=== PATIENT | male | born 1950 | race Caucasian/White ===

== ENCOUNTER 2018-08-21 02:14 | Outpatient (CLI) | payer MEDICARE, BC, SELFPAY ==
[2018-08-21 09:08] LABS: Cholesterol 201 mg/dL (50-200); HDL Cholesterol 41 mg/dL (40-60); LDL CHOLESTEROL 146 mg/dL (<100); Triglyceride 96 mg/dL (30-150)
== END 2018-08-21 02:34 ==
PROVIDERS: PCP Internal Medicine; Visit Provider Internal Medicine
DX: E78.5 Hyperlipidemia, unspecified (principal); I10 Essential (primary) hypertension
CPT/HCPCS: 36415; 80061; 83721

== ENCOUNTER 2019-03-03 09:13 | Outpatient (CLI) | payer MEDICARE, BC, SELFPAY ==
[2019-03-04 09:26] LABS: PSA, Screening 4.1 ng/ml (0-4.5)
== END 2019-03-03 09:33 ==
PROVIDERS: PCP Internal Medicine; Visit Provider Internal Medicine
DX: R35.1 Nocturia (principal)
CPT/HCPCS: 36415; 84153

== ENCOUNTER 2019-10-02 11:52 | Outpatient (CLI) | payer MEDICARE, BC, SELFPAY ==
--- NOTE | 2019-10-02 11:45 | DI.RAD_ITS ---
EXAM: XR CHEST 2V PA LATERAL INDICATION: cough, upper respiratory infection, J06.9. COMPARISON: CHEST 2 VIEWS PA,LAT from 02/10/2018 TECHNIQUE: 2D digital imaging was performed. FINDINGS: Heart size is normal. The aorta is normal in diameter. There are increased densities seen near the right inferior hilum which could represent pneumonia versus overlying structures. The left lung appe ars clear. No effusions are seen. IMPRESSION: Question of right lower lobe pneumonia versus atelectasis are overlying densities.
[2019-10-02 12:57] LABS: Abs Immature Grans 0.03 k/cumm (0.0-0.09); Absolute Eosinophil Count 0.03 k/cumm (0.0-0.7); Basophils % 0.2; Eosinophils % 0.2; HCT 44.9 % (40.0-50.0); HGB 14.9 g/dL (13.5-17.5); Immature Grans % 0.2; Lymphocytes % 9.2; Mean Corp. HGB Concentration 33.2 g/dL (32.0-36.0); Mean Corpuscular Hemoglobin 29.3 pg (27.0-33.0); Mean Corpuscular Volume 88.4 fL (80-95); Mean Platelet Volume 10.4 fL (8.0-11.0); Neutrophils % 81.2; Platelet Count 332 x1000/uL (130-400); RBC 5.08 m/cumm (4.50-6.00); RBC Distribution Width 13.1 % (11.8-14.1); White Blood Cell Count 13.04 k/cumm (4.4-10.8)
[2019-10-02 13:00] LABS: ALT 52 U/L (16-63); AST 24 U/L (15-37); Albumin 3.3 g/dL (3.4-5.0); Alkaline Phosphatase 94 U/L (46-116); Anion Gap 8.3 mmol/L (3-11); BUN 14 mg/dL (7-18); Bilirubin, Total 0.9 mg/dL (0.2-1.0); CO2 29.7 mmol/L (21.0-32.0); CREATININE 1.09 mg/dL (0.70-1.30); Calcium 8.8 mg/dL (8.5-10.1); Chloride 100 mmol/L (98-107); Glucose 112 mg/dL (70-100); Potassium 4.1 mmol/L (3.5-5.1); Sodium 138 mmol/L (136-145); Total Protein 7.3 g/dL (6.4-8.2)
[2019-10-02 13:02] LABS: Absolute Basophil Count 0.03 k/cumm (0.0-0.2); Absolute Monocyte Count 1.17 k/cumm (0.11-0.7); Absolute Neutrophil Count 10.59 k/cumm (1.2-6.7)
== END 2019-10-02 12:12 ==
PROVIDERS: PCP Internal Medicine; Visit Provider Internal Medicine
DX: R05 Cough (principal); J06.9 Acute upper respiratory infection, unspecified; R50.9 Fever, unspecified; J98.4 Other disorders of lung
CPT/HCPCS: 36415; 80053; 71046; 85025

== ENCOUNTER 2020-06-04 12:57 | Outpatient (REF) | payer MEDICARE, BC, SELFPAY ==
[2020-06-04 13:02] LABS: CREATININE 1.06 mg/dL (0.70-1.30); Calculated LDL 160 mg/dL (<100); Cholesterol 228 mg/dL (<200); HDL Cholesterol 40 mg/dL (40-60); Potassium 4.3 mmol/L (3.5-5.1); Triglyceride 142 mg/dL (<150)
[2020-06-04 13:58] LABS: Hemoglobin A1C 5.6 % (3.8-5.6)
== END 2020-06-04 13:17 ==
LOC: LBN 12:57
PROVIDERS: PCP Nurse Practitioner; Visit Provider Nurse Practitioner
DX: I10 Essential (primary) hypertension (principal); R73.03 Prediabetes
CPT/HCPCS: 80061; 82565; 83036; 84132

== ENCOUNTER 2020-09-03 13:05 | Outpatient (REF) | payer MEDICARE, BC, SELFPAY ==
[2020-09-03 14:17] LABS: Calculated LDL 67 mg/dL (<100); Cholesterol 129 mg/dL (<200); HDL Cholesterol 42 mg/dL (40-60); Triglyceride 100 mg/dL (<150)
== END 2020-09-03 13:25 ==
LOC: LBN 13:05
PROVIDERS: PCP Nurse Practitioner; Visit Provider Nurse Practitioner
DX: E78.5 Hyperlipidemia, unspecified (principal)
CPT/HCPCS: 80061

== ENCOUNTER 2021-07-04 09:26 | Day surgery (SDC) | payer MEDICARE, BC, SELFPAY ==
--- NOTE | 2021-07-04 07:01 | W.ANESPRE ---
General Info Date of Service Date Performed: 07/04/21 Height: 6 ft 1 in Weight: 113.398 kg Body Mass Index (BMI): 33.0 Surgical Procedure: Operation Date: 07/04/21 12:40 Proposed Procedures Side Surgeon p Cataract Extraction with IOL Implant Right Thiago Gamboa MD Meds Allergies and Home Medications Allergies Allergy/AdvReac Type Severity Reaction Status Date / Time No Known Allergies Allergy Verified 07/04/21 09:55 Home Medication Medication Instructions Recorded aspirin [Aspirin Low-Strength] 81 mg PO DAILY tab-cap 10/09/13 hydrochlorothiazide 12.5 mg tablet 12.5 mg PO DAILY #90 tab-cap 02/03/21 lisinopril 40 mg tablet 40 mg PO DAILY #90 tab-cap 02/03/21 atorvastatin 40 mg tablet 40 mg PO QPM #90 tab 06/10/21 Current Visit Medications: Current Medications Generic Name Dose Route Start Last Admin Trade Name Freq PRN Reason Stop Dose Admin Acetaminophen 1,000 mg 07/04/21 06:00 Acetaminophen 500 Mg Tab PO Q4H PRN PRN Miscellaneous Medication 0 ml 07/04/21 06:00 Prednisolone 1%, Moxifloxacin 0.5%, Nepafenac 0.1% 5ml Btl OD DIRECTED MARQUISE Miscellaneous Medication 0 ml 07/04/21 06:00 Tropicam./Phenyleph. (1/2.5%) 5 Ml Btl OD DIRECTED MARQUISE Tetracaine HCl 0 ml 07/04/21 06:00 Tetracaine 0.5% 4 Ml Btl OD DIRECTED MARQUISE PFSH Active Problems Active Problems: Problem Status Onset Code Cataract H26.9 Hyperlipidemia E78.5 Essential hypertension 10/08/13 I10 Medical History Medical History Atypical chest pain (02/10/18) negative stress test Essential hypertension Surgical History Surgical History Colonoscopy - MAC (05/31/18) Repair of inguinal hernia (~2007) left Tobacco Smoking/Tobacco Use Status: Former Tobacco Use Tobacco: How many years used: 35 Passive smoking exposure: No Quit Status: has quit before Second hand exposure: No Alcohol Alcohol Intake: current Alcohol intake frequency: a few times a month Alcohol type: hard liquor Substance Use Substance use: Never Substance use type: does not use Vital Signs and Lab Results Vital Signs Most Recent Vital Signs in EMR: Temp Pulse Resp BP Pulse Ox 36.4 C L 66 16 138/82 98 07/04/21 09:41 07/04/21 09:41 07/04/21 09:41 07/04/21 09:41 07/04/21 09:41 Lab Results Blood Type / Crossmatch: No Data to Display Complete Blood Count: No Data to Display Complete Metabolic Panel: No Data to Display Liver Function Panel: No Data to Display Coagulation Panel: No Data to Display Cardiac Panel: No Data to Display Arterial Blood Gas: No Data to Display Venous Blood Gas: No Data to Display Pancreas Panel: No Data to Display Thyroid Panel: No Data to Display Infectious Disease: No Data to Display Blood Cultures: No Data to Display Toxicology Panel: No Data to Display Imaging and Studies Imaging and Studies Stress Test Summary: 01/2018: stress ECG negative. target HR was achieved. Anesthesia Assessment and Plan Anesthesia History Personal History: No History of Anesthesia Complications Family History: No Family History of Anesthesia Complications Exercise Tolerance Exercise Tolerance: Metabolic Equivalents>4 Cardiac & Pulmonary Exam Cardiac Exam: Normal S1/S2 Heart Sounds Pulmonary Exam: Clear Bilateral Breath Sounds Airway Exam Known Difficult Airway: No Mallampati Class: 3 Mouth Opening: Normal (> 3cm) Thyromental Distance: Greater than 3 cm Neck Range of Motion: Limited ROM Neck Circumference: Thick Teeth Condition: Normal Dentition (multiple missing. ) ASA Classification ASA Score: ASA 2 Emergency Case?: No NPO Status NPO Status: NPO Clears >2 hours, Solids >8 hours Anesthesia Plan Resuscitation Status: Full Code Anesthesia Technique: MAC Anesthesia Airway Planned: Natural Airway Monitors Used: Standard Monitors Preoperative Comments:: 68 yo male for cataract removal. discussed risks, benefits, and alternatives to MKO, would like MKO. sig PMHx: HTN
[2021-07-04 09:41] VITALS: BP 138/82; PULSE 66; RESP 16; TEMP 36.4; O2SAT 98
[2021-07-04] MEDS: Tropicam./Phenyleph. (1/2.5%) 5 ML BTL OD ×3 (09:54→10:09)
[2021-07-04 09:59] VITALS: BMI 33.0
[2021-07-04] MEDS: Tetracaine 0.5% 4 ML BTL OD (10:58)
[2021-07-04] MEDS: Balanced Salt Soln.-PLUS 500 ML BAG (11:07)
[2021-07-04] MEDS: Povidone-Iodine Ophth 30 ML BTL (11:07)
[2021-07-04] MEDS: Lidocaine 2% Jelly 6 ML SYR (11:08)
[2021-07-04] MEDS: Lidocaine 1% Pres-Free 5 ML VIAL (11:08)
[2021-07-04] MEDS: Duovisc Viscoelastic System EACH 1 EACH (11:09)
[2021-07-04] MEDS: Trypan Blue 0.06% 0.5 ML SYR (11:14)
[2021-07-04 11:36] VITALS: BP 128/69; PULSE 60; RESP 16; TEMP 36.2; O2SAT 96
--- NOTE | 2021-07-04 11:38 | W.PM.DSUDISC ---
Discharge Plan Disposition Patient Disposition: HOME Condition: Good Discharge Details Reason For Visit: Cataract Attending Provider: Thiago Gamboa Primary Care Provider: Dorita Carter Home Meds and New Rx's Prescriptions: No Action atorvastatin 40 mg tablet 40 mg PO QPM Qty: 90 RF: 4 aspirin [Aspirin Low-Strength] 81 MG tablet,chewable 81 mg PO DAILY RF: 0 hydrochlorothiazide 12.5 mg tablet 12.5 mg PO DAILY Qty: 90 RF: 3 lisinopril 40 mg tablet 40 mg PO DAILY Qty: 90 RF: 4 Discharge Instructions Stand Alone Forms: Post-op Topical Cataract, Brendan Wen (DSU) Discharge Orders Discharge Orders: Discharge Order (Routine); Ordered 07/04/21 Ordered By: Thiago Gamboa DS: Diagnosis Discharge Diagnosis (1) Posterior subcapsular age-related cataract, right eye: Status: Resolved (2) Nuclear sclerotic cataract of right eye: Status: Resolved
--- NOTE | 2021-07-04 11:39 | W.PM.OP ---
Date of service: 07/04/21 Time of Service: 11:39 Operative Note Operative Note DATE OF PROCEDURE: 07/04/21 PRE-OP DIAGNOSIS: Dense nuclear/posterior subcapsular cataract, right eye Poor red reflex, right eye secondary to cataract POST-OP DIAGNOSIS: same PROCEDURE: Cataract extraction using phacoemulsification with intraocular lens implantation, right eye, using capsular staining with Vision Blue SURGEON: Thiago Gamboa ANESTHESIA TYPE: Local By Surgeon and MAC Refer to Anesthesia Record PATHOLOGY: none sent COMPLICATIONS: None Patient was transported to: same day Patient's condition: stable Implants: Orte[employer] Ortega / [employer] Tecnis [id number] Indications: Progressive visual loss due to cataract, right eye Procedure Description: CATARACT SURGERY OPERATIVE REPORT PREOPERATIVE DIAGNOSIS: 1. Dense nuclear/posterior subcapsular cataract, right eye 2. Poor red reflex secondary to #1 POSTOPERATIVE DIAGNOSIS: Same OPERATION: 1. Cataract extraction using phacoemulsification with posterior chamber intraocular lens implant, right eye. 2. Capsular staining with Vision Blue IOL: IOL Mental Health Counselor/Model: [employer] / KEM Tecnis [id number] IOL Power: + 21.5 diopters IOL Serial Number: [id number] Optic Diameter: 6.0mm Haptic/Overall Diameter: 13.0mm PHACO INFO: Andrews [employer] Vision System with OZil and Active Fluidics Cumulative Dispersed Energy (CDE): 27.25 seconds SURGEON: Thiago Gamboa MD, JN ANESTHESIA: Monitored Anesthesia Care (MAC), with local sub-tenon's anesthetic infiltration COMPLICATIONS: None SPECIMENS: None INDICATIONS FOR PROCEDURE: The patient is a 71-year-old gentleman with history of progressive decreased vision in his right eye. He is noted to have a dense nuclear and posterior subcapsular cataract in the right eye. The option of cataract surgery was offered to the patient and he felt he was symptomatic enough that he wished to proceed. PROCEDURE: The correct surgical eye was identified and marked as the right eye and the pupil was dilated in the preoperative area using mydriatics and cycloplegics. The dilated pupil size was 7.0 mm. Oral sedation was administered in the form of an Imprimis MKO Melt (midazolam 3mg/ketamine 25mg/ondansetron 2mg). The patient was brought to the operating room where cardiopulmonary monitoring was instituted and surgical time-out was performed, confirming the correct operative eye and IOL power. Topical anesthesia was administered and ophthalmic povidone-iodine 5% was instilled into the conjunctival fornices. Lidocaine gel was applied to the cornea and the edmund-ocular area was prepped with Betadine 10% solution and draped in the usual sterile fashion for intraocular surgery, including an aperture drape. A Tegaderm transparent film dressing was cut in half and used to cover the lashes and lid margins. Care was taken to sequester the lashes and lid margins under the Tegaderm dressing. A lid speculum was placed between the lids of the operative eye and the Jennifer-Beverley operating microscope was maneuvered into position. Gage scissors were then used to make a conjunctival buttonhole approximately 6mm posterior to the limbus in the inferonasal quadrant. Blunt dissection was carried out to expose bare sclera, and a blunt-tipped sub-tenon?s anesthesia cannula was introduced and passed posteriorly along the globe where non-preserved plain lidocaine was injected into posterior sub-Tenon?s space. A sideport knife was used to make a paracentesis port inferotemporally. Intraocular phenylephrine/lidocaine was injected into the anterior chamber. Air was injected into the anterior chamber, followed by Vision Blue, which was painted over the anterior capsule and then irrigated out with BSS. The anterior chamber was filled with viscoelastic. A 2.4mm keratome knife was used to create a half-thickness groove at the limbus and then to construct a three-plane near-clear corneal tunnel extending 2.0mm into clear cornea superiortemporally. A flap was raised on the anterior capsule and capsulorhexis forceps were used to complete a continuous curvilinear capsulorhexis of 5.5 mm. Balanced salt solution was then used to perform cortical cleaving hydrodissection and nuclear hydrodelineation until the lens could be freely rotated within the capsular bag. The lens nucleus was then disassembled and removed within the capsular bag and iris plane using phacoemulsification. The nucleus was noted to be quite dense. Residual cortical material was removed using the I/A handpiece. The posterior capsule was carefully polished to remove as much residual lens epithelial cells as safely possible. There was a dense posterior subcapsular plaque centrally, nasally, and superiorly which could not be safely removed despite extensive polishing. The capsular bag was then inflated and the anterior chamber deepened with viscoelastic. The lens implant described above was inserted into the capsular bag using the KEM [place] Injector. A Kuglen hook was used to dial the IOL into position. Residual viscoelastic was then removed first from posterior to the IOL, then from the anterior chamber using the I/A handpiece. The lens implant was noted to center nicely within the capsular bag. The incisions were stromally hydrated, and the anterior chamber was reformed using BSS. Then 0.5cc of moxifloxacin 1.0mg/ml were injected into the capsular bag and anterior chamber. The incisions were checked with a Weck spear and found to be secure. Several drops of ophthalmic povidone-iodine 5% were then applied to the eye followed by two drops of Imprimis combination prednisolone/moxifloxacin/nepafenac solution. The drapes were removed and a clear plastic protective eye shield was placed over the eye. The patient was then returned to Same Day Surgery in stable condition.
--- NOTE | 2021-07-04 11:43 | W.ANESPOSTOP ---
Postoperative Evaluation Date, Time and Location Date Performed: 07/04/21 Time Performed: 11:43 Patient Location: Day Surgery Unit Vital Signs Most Recent Imported Vital Signs: Most Recent Vital Signs Temp Pulse Resp BP Pulse Ox 36.2 C L 60 16 128/69 96 07/04/21 11:36 07/04/21 11:36 07/04/21 11:36 07/04/21 11:36 07/04/21 11:36 Pain Score Most Recent Pain Score: Most Recent Pain Score Pain Level 0 07/04/21 11:36 Assessment Mental Status: Awake (Alert & Oriented to Patient Baseline) Airway and Respiratory Function: Patent airway with normal (patient baseline) respiratory exam Cardiovascular Function: Hemodynamically Stable Hydration Status: Adequately Hydrated Nausea & Vomiting: No Nausea or Vomiting Pain: Pt. Denies Any Pain Peripheral Nerve Block: Patient did not receive a nerve block
[2021-07-04 12:04] VITALS: BP 124/68; PULSE 61; RESP 16; TEMP 36.6; O2SAT 95
== END 2021-07-04 12:17 | disposition home or self-care (01) ==
PROVIDERS: PCP Nurse Practitioner; Visit Provider Ophthalmology
PROC: (CPT 66984; principal; 2021-07-04 12:30)
DX: H25.041 Posterior subcapsular polar age-related cataract, right eye (principal); I10 Essential (primary) hypertension; E78.5 Hyperlipidemia, unspecified
CPT/HCPCS: 66984; V2632

== ENCOUNTER 2021-07-15 02:00 | Outpatient (CLI) | payer MEDICARE, BC, SELFPAY ==
[2021-07-15 13:07] LABS: Source Nasal/Nares
[2021-07-15 19:12] LABS: COVID-19 PCR Negative (Negative)
== END 2021-07-15 02:01 | disposition home or self-care (01) ==
PROVIDERS: PCP Nurse Practitioner; Visit Provider Ophthalmology
DX: Z01.812 Encounter for preprocedural laboratory examination (principal); Z20.822 Contact with and (suspected) exposure to COVID-19
CPT/HCPCS: 87635

== ENCOUNTER 2021-07-18 07:21 | Day surgery (SDC) | payer MEDICARE, BC, SELFPAY ==
[2021-07-18 07:34] VITALS: BP 133/76; PULSE 60; RESP 16; TEMP 36.6; O2SAT 97
[2021-07-18] MEDS: Tropicam./Phenyleph. (1/2.5%) 5 ML BTL OS ×3 (07:45→07:57)
--- NOTE | 2021-07-18 07:48 | W.ANESPRE ---
General Info Date of Service Date Performed: 07/18/21 Height: 6 ft 1 in Weight: 113.9 kg Body Mass Index (BMI): 33.1 Surgical Procedure: Operation Date: 07/18/21 09:40 Proposed Procedures Side Surgeon p Cataract Extraction with IOL Implant Left Thiago Gamboa MD Meds Allergies and Home Medications Allergies Allergy/AdvReac Type Severity Reaction Status Date / Time No Known Allergies Allergy Verified 07/14/21 15:14 Home Medication Medication Instructions Recorded aspirin [Aspirin Low-Strength] 81 mg PO DAILY tab-cap 10/09/13 hydrochlorothiazide 12.5 mg tablet 12.5 mg PO DAILY #90 tab-cap 02/03/21 lisinopril 40 mg tablet 40 mg PO DAILY #90 tab-cap 02/03/21 atorvastatin 40 mg tablet 40 mg PO QPM #90 tab 06/10/21 Current Visit Medications: Current Medications Generic Name Dose Route Start Last Admin Trade Name Freq PRN Reason Stop Dose Admin Acetaminophen 1,000 mg 07/18/21 06:00 Acetaminophen 500 Mg Tab PO Q4H PRN PRN Miscellaneous Medication 0 ml 07/18/21 06:00 Prednisolone 1%, Moxifloxacin 0.5%, Nepafenac 0.1% 5ml Btl OS DIRECTED MARQUISE Miscellaneous Medication 0 ml 07/18/21 06:00 07/18/21 07:45 Tropicam./Phenyleph. (1/2.5%) 5 Ml Btl OS 1 drp DIRECTED MARQUISE Administration Tetracaine HCl 0 ml 07/18/21 06:00 Tetracaine 0.5% 4 Ml Btl OS DIRECTED MARQUISE PFSH Active Problems Active Problems: Problem Status Onset Code Posterior subcapsular age-related cataract of left eye H25.042 Nuclear sclerotic cataract of left eye H25.12 Posterior subcapsular age-related cataract, right eye H25.041 Nuclear sclerotic cataract of right eye H25.11 Cataract H26.9 Hyperlipidemia E78.5 Essential hypertension 10/08/13 I10 Medical History Medical History Atypical chest pain (02/10/18) negative stress test Essential hypertension Surgical History Surgical History Colonoscopy - MAC (05/31/18) Repair of inguinal hernia (~2007) left Tobacco Smoking/Tobacco Use Status: Former Tobacco Use Tobacco: How many years used: 35 Passive smoking exposure: No Quit Status: has quit before Second hand exposure: No Alcohol Alcohol Intake: current Alcohol intake frequency: a few times a month Alcohol type: hard liquor Substance Use Substance use: Never Substance use type: does not use Vital Signs and Lab Results Vital Signs Most Recent Vital Signs in EMR: Most Recent Vital Signs Temp Pulse Resp BP Pulse Ox 36.6 C 60 16 133/76 97 07/18/21 07:34 07/18/21 07:34 07/18/21 07:34 07/18/21 07:34 07/18/21 07:34 Lab Results Blood Type / Crossmatch: No Data to Display Complete Blood Count: No Data to Display Complete Metabolic Panel: No Data to Display Liver Function Panel: No Data to Display Coagulation Panel: No Data to Display Cardiac Panel: No Data to Display Arterial Blood Gas: No Data to Display Venous Blood Gas: No Data to Display Pancreas Panel: No Data to Display Thyroid Panel: No Data to Display Infectious Disease: Coronavirus (COVID-19)(PCR) Negative (Negative) 07/15/21 11:38 07/15/21 Coronavirus 2019 Source Nasal/Nares 07/15/21 11:38 07/15/21 Blood Cultures: No Data to Display Toxicology Panel: No Data to Display Imaging and Studies Imaging and Studies Stress Test Summary: 01/2018: stress ECG negative. target HR was achieved. Anesthesia Assessment and Plan Anesthesia History Personal History: No History of Anesthesia Complications Family History: No Family History of Anesthesia Complications Exercise Tolerance Exercise Tolerance: Metabolic Equivalents>4 Pertinent Negatives Pertinent Negatives: No Major Cardiovascular Symptoms or Complaints, No Major Pulmonary Symptoms or Complaints and No History of CVA/TIA Cardiac & Pulmonary Exam Cardiac Exam: Normal S1/S2 Heart Sounds Pulmonary Exam: Clear Bilateral Breath Sounds Airway Exam Known Difficult Airway: No Mallampati Class: 3 Mouth Opening: Normal (> 3cm) Thyromental Distance: Greater than 3 cm Neck Range of Motion: Limited ROM Neck Circumference: Thick Teeth Condition: Normal Dentition (multiple missing. ) ASA Classification ASA Score: ASA 2 Emergency Case?: No NPO Status NPO Status: NPO Clears >2 hours, Solids >8 hours Anesthesia Plan Resuscitation Status: Full Code Anesthesia Technique: MAC Anesthesia Airway Planned: Natural Airway Monitors Used: Standard Monitors Preoperative Comments:: 68 yo male for cataract removal. discussed risks, benefits, and alternatives to MKO, would like MKO. sig PMHx: HTN
[2021-07-18 08:11] VITALS: BMI 33.1
[2021-07-18] MEDS: Tetracaine 0.5% 4 ML BTL OS (09:23)
[2021-07-18] MEDS: Balanced Salt Soln.-PLUS 500 ML BAG (09:27)
[2021-07-18] MEDS: Duovisc Viscoelastic System EACH 1 EACH (09:28)
[2021-07-18] MEDS: Lidocaine 1% Pres-Free 5 ML VIAL (09:29)
[2021-07-18] MEDS: Lidocaine 2% Jelly 6 ML SYR (09:29)
[2021-07-18] MEDS: Povidone-Iodine Ophth 30 ML BTL (09:30)
[2021-07-18] MEDS: Trypan Blue 0.06% 0.5 ML SYR (09:31)
--- NOTE | 2021-07-18 09:43 | W.PM.DSUDISC ---
Discharge Plan Disposition Patient Disposition: HOME Condition: Good Discharge Details Attending Provider: Thiago Gamboa Primary Care Provider: Dorita Carter Home Meds and New Rx's Prescriptions: No Action atorvastatin 40 mg tablet 40 mg PO QPM Qty: 90 RF: 4 aspirin [Aspirin Low-Strength] 81 MG tablet,chewable 81 mg PO DAILY RF: 0 hydrochlorothiazide 12.5 mg tablet 12.5 mg PO DAILY Qty: 90 RF: 3 lisinopril 40 mg tablet 40 mg PO DAILY Qty: 90 RF: 4 Discharge Instructions Stand Alone Forms: Post-op Topical Cataract, Brendan Wen (DSU) Discharge Orders Discharge Orders: Discharge Order (Routine); Ordered 07/18/21 Ordered By: Thiago Gamboa DS: Diagnosis Discharge Diagnosis (1) Posterior subcapsular age-related cataract of left eye: Status: Resolved (2) Nuclear sclerotic cataract of left eye: Status: Resolved
--- NOTE | 2021-07-18 09:44 | ROE_ITS ---
Date of service: 07/18/21 Time of Service: 09:44 Operative Note Operative Note DATE OF PROCEDURE: 07/18/21 PRE-OP DIAGNOSIS: Dense nuclear/posterior subcapsular cataract, left eye Poor red reflex, left eye secondary to cataract POST-OP DIAGNOSIS: same PROCEDURE: Cataract extraction using phacoemulsification with intraocular lens implant, left eye, using capsular staining with Vision Blue SURGEON: Thiago Gamboa ANESTHESIA TYPE: Local By Surgeon and MAC Refer to Anesthesia Record COMPLICATIONS: None Patient was transported to: same day Patient's condition: stable Implants: Orte[employer] Ortega / [employer] Tecnis [id number] Indications: Progressive decreased vision due to cataract, left eye, with poor red reflex Procedure Description: CATARACT SURGERY OPERATIVE REPORT PREOPERATIVE DIAGNOSIS: 1. Dense nuclear/posterior subcapsular cataract, left eye 2. Poor red reflex secondary to #1 POSTOPERATIVE DIAGNOSIS: Same OPERATION: 1. Cataract extraction using phacoemulsification with posterior chamber intraocular lens implant, left eye. 2. Capsular staining with Vision Blue IOL: IOL Plaster Mixer/Model: [employer] Or[employer] / KEM Tecnis [id number] IOL Power: + 22.0 diopters IOL Serial Number: [id number] Optic Diameter: 6.0 mm Haptic/Overall Diameter: 13.0 mm PHACO INFO: Andrews [employer] Vision System with OZil and Active Fluidics Cumulative Dispersed Energy (CDE): 32.87 seconds SURGEON: Thiago Gamboa MD, JN ANESTHESIA: Monitored A [facility] (MAC), with local sub-tenon's anesthetic infiltration COMPLICATIONS: None SPECIMENS: None INDICATIONS FOR PROCEDURE: The patient is a 71-year-old gentleman with history of diminished visual acuity in both eyes secondary to the development of dense bilateral cataracts. He has already undergone cataract surgery in the right eye and is doing well postoperatively. He now presents for cataract surgery in the left eye. PROCEDURE: The correct surgical eye was identified and marked as the left eye and the pupil was dilated in the preoperative area using mydriatics and cycloplegics. The dilated pupil size was 7.0 mm. Oral sedation was administered in the form of an Imprimis MKO Melt (midazolam 3mg/ketamine 25mg/ondansetron 2mg). The patient was brought to the operating room where cardiopulmonary monitoring was instituted and surgical time-out was performed, confirming the correct operative eye and IOL power. Topical anesthesia was administered and ophthalmic povidone-iodine 5% was instilled into the conjunctival fornices. Lidocaine gel was applied to the cornea and the edmund-ocular area was prepped with Betadine 10% solution and draped in the usual sterile fashion for intraocular surgery, including an aperture drape. A Tegaderm transparent film dressing was cut in half and used to cover the lashes and lid margins. Care was taken to sequester the lashes and lid margins under the Tegaderm dressing. A lid speculum was placed between the lids of the operative eye and the Jennifer-Beverley operating microscope was maneuvered into position. Gage scissors were then used to make a conjunctival buttonhole approximately 6mm posterior to the limbus in the inferonasal quadrant. Blunt dissection was carried out to expose bare sclera, and a blunt-tipped sub-tenon?s anesthesia cannula was introduced and passed posteriorly along the globe where non- preserved plain lidocaine was injected into posterior sub-Tenon?s space. A sideport knife was used to make a paracentesis port superiorly/superiortemporally. Intraocular phenylephrine/lidocaine was injected int the anterior chamber.. Air was then injected into the anterior chamber, followed by Vision Blue, which was painted over the anterior capsule and then irrigated out using BSS. The anterior chamber was filled with viscoelastic. A 2.4mm keratome knife was used to create a half-thickness groove at the limbus and then to construct a three-plane near-clear corneal tunnel extending 2.0mm into clear cornea at the 3:00 position. A flap was raised on the anterior capsule and capsulorhexis forceps were used to complete a continuous curvilinear capsulorhexis of 5.5 mm. Balanced salt solution was then used to perform cortical cleaving hydrodissection and nuclear hydrodelineation until the lens could be freely rotated within the capsular bag. The lens nucleus was then disassembled and removed within the capsular bag and iris plane using phacoemulsification. Residual cortical material was removed using the 45-degree angled silicone I/A tip with 0.3mm port. The posterior capsule was carefully polished to remove as much residual lens epithelial cells as safely possible. The capsular bag was then inflated and the anterior chamber deepened with viscoelastic. The lens implant described above was inserted into the capsular bag using the KEM [place] Injector. A Kuglen hook was used to dial the IOL into position. Residual viscoelastic was then removed first from posterior to the IOL, then from the anterior chamber using the I/A handpiece. The lens implant was noted t o center nicely within the capsular bag. The incisions were stromally hydrated, and the anterior chamber was reformed using BSS. Some posterior pressure was noted, with the IOL tending to vault anteriorly. Then 0.5cc of moxifloxacin 1.0mg/ml were injected into the capsular bag and anterior chamber. Miostat was injected into the anterior chamber, ensuring that the pupil was not captured by the IOL. The incisions were checked with a Weck spear and found to be secure. Several drops of ophthalmic povidone-iodine 5% were then applied to the eye followed by two drops of Imprimis combination pred nisolone/moxifloxacin/nepafenac solution. The drapes were removed and a clear plastic protective eye shield was placed over the eye. The patient was then returned to Same Day Surgery in stable condition.
[2021-07-18 10:00] VITALS: BP 128/75; PULSE 63; RESP 16; TEMP 36; O2SAT 96
[2021-07-18 10:12] VITALS: BP 139/81; PULSE 62; RESP 17; TEMP 36.1; O2SAT 98
--- NOTE | 2021-07-18 14:08 | W.ANESPOSTOP ---
Postoperative Evaluation Date, Time and Location Date Performed: 07/18/21 Time Performed: 14:08 Patient Location: Day Surgery Unit Vital Signs Most Recent Imported Vital Signs: Most Recent Vital Signs Temp Pulse Resp BP Pulse Ox 36.1 C L 62 17 139/81 98 07/18/21 10:12 07/18/21 10:12 07/18/21 10:12 07/18/21 10:12 07/18/21 10:12 Pain Score Most Recent Pain Score: Most Recent Pain Score Pain Level 0 07/18/21 10:12 Assessment Mental Status: Awake (Alert & Oriented to Patient Baseline) Airway and Respiratory Function: Patent airway with normal (patient baseline) respiratory exam Cardiovascular Function: Hemodynamically Stable Hydration Status: Adequately Hydrated Nausea & Vomiting: No Nausea or Vomiting Pain: Pt. Denies Any Pain Peripheral Nerve Block: Patient did not receive a nerve block Postoperative Comments:: discharged home without apparent complications.
== END 2021-07-18 10:15 | disposition home or self-care (01) ==
PROVIDERS: PCP Nurse Practitioner; Visit Provider Ophthalmology
PROC: (CPT 66984; principal; 2021-07-18 09:30)
DX: H25.042 Posterior subcapsular polar age-related cataract, left eye (principal); I10 Essential (primary) hypertension
CPT/HCPCS: 66984; V2632

== ENCOUNTER 2022-01-25 03:54 | Outpatient (CLI) | payer MEDICARE, BC, SELFPAY ==
[2022-01-25 14:28] LABS: CREATININE 1.2 mg/dL (0.70-1.30); Calculated LDL 55 mg/dL (<100); Cholesterol 111 mg/dL (<200); Estimated GFR 59.68 (mL/min/1.73m2); HDL Cholesterol 36 mg/dL (40-60); Triglyceride 103 mg/dL (<150)
== END 2022-01-25 03:55 | disposition home or self-care (01) ==
LOC: LBO 03:54
PROVIDERS: PCP Nurse Practitioner; Visit Provider Nurse Practitioner
DX: E78.2 Mixed hyperlipidemia (principal); I10 Essential (primary) hypertension
CPT/HCPCS: 36415; 80061; 82565; 84132

== ENCOUNTER → 2022-04-18 12:45 | Outpatient (BNVA) | payer MEDICARE, BC, SELFPAY | PROVIDERS: PCP Nurse Practitioner; Referring Provider Nurse Practitioner; Visit Provider Nurse Practitioner Gerontology | DX: N43.3 Hydrocele, unspecified (principal) | CPT/HCPCS: 99204 ==

== ENCOUNTER 2022-11-21 10:44 | Outpatient (CLI) | payer MEDICARE, BC, SELFPAY ==
--- NOTE | 2022-11-21 10:30 | RT.EKG_ITS ---
APPROVED REPORT Exam: Resting ECG Reason for Exam: chest discomfort Patient Location: O HR:72 bpm ECG Measurements Heart Rate 72 AXIS [place] 198 P 14 QRSd 85 QRS 29 QT 383 T 27 QTc 420 Conclusion Sinus rhythm...normal P axis, V-rate 50- 99 Normal Electrocardiogram
== END 2022-11-21 10:45 | disposition home or self-care (01) ==
LOC: DI.CM 10:49
PROVIDERS: PCP Nurse Practitioner Family; Visit Provider Nurse Practitioner Family
DX: R07.89 Other chest pain (principal)
CPT/HCPCS: 93010

== ENCOUNTER → 2022-11-28 10:15 | Outpatient (BNVA) | payer MEDICARE, BC, SELFPAY | PROVIDERS: PCP Nurse Practitioner Family; Referring Provider Nurse Practitioner; Visit Provider Nurse Practitioner Gerontology | DX: N43.3 Hydrocele, unspecified (principal) | CPT/HCPCS: 99213 ==

== ENCOUNTER → 2023-08-15 12:47 | Outpatient (BNVA) | payer MEDICARE, BC, SELFPAY | PROVIDERS: PCP Nurse Practitioner Family; Referring Provider Nurse Practitioner Family; Visit Provider Nurse Practitioner Gerontology | DX: N43.3 Hydrocele, unspecified (principal); I10 Essential (primary) hypertension | CPT/HCPCS: 99212 ==

== ENCOUNTER 2023-09-28 07:42 | Emergency (ER) | payer MEDICARE, BC, SELFPAY ==
[2023-09-28] VITALS (16 sets, daily range): BP systolic 129–147; BP diastolic 52–79; PULSE 76–87; RESP 16–22; TEMP 36.2–36.4; O2SAT 92–99
--- NOTE | 2023-09-28 07:45 | RT.EKG_ITS ---
APPROVED REPORT Exam: Resting ECG Reason for Exam: Chest pain Patient Location: E HR:83 bpm ECG Measurements Heart Rate 83 AXIS [place] 171 P 33 QRSd 84 QRS 62 QT 363 T 31 QTc 421 Conclusion Sinus rhythm...normal P axis, V-rate 60- 99 Atrial premature complex...SV complex w/ short R-R interval Physician: no stemi, q waves present in inferior leads, but unchanged from prior ekg
--- NOTE | 2023-09-28 08:03 | ED.GENADUL_ITS ---
Discharge Plan Disposition Patient Disposition: Home Condition: Stable Discharge Details Clinical Impression: Enteritis Primary Care Provider: Nabila Barahona ED Provider: Delonte Arias Home Meds and New Rx's Prescriptions: Continued cholecalciferol (vitamin D3) 25 mcg (1,000 unit) capsule 25 mcg PO DAILY ascorbic acid (vitamin C) 500 mg capsule 500 mg PO DAILY Co [id number] E-Fish Oil 25-150-200 mg-mg-unit capsule 1 cap PO DAILY zinc glycinate 30 mg capsule 30 mg PO DAILY saw palmetto 160 mg capsule 640 mg PO DAILY Rx Instructions: give with meal/snack aspirin [Aspirin Low-Strength] 81 MG tablet,chewable 81 mg PO DAILY Patient Comments: Pt only takes in the summer time lisinopril 40 mg tablet 40 mg PO DAILY Qty: 90 4RF atorvastatin 40 mg tablet 40 mg PO QPM Qty: 90 4RF hydrochlorothiazide 12.5 mg tablet 12.5 mg PO DAILY Qty: 90 3RF tamsulosin 0.4 mg capsule 0.4 mg PO DAILY Qty: 90 3RF Discharge Instructions Instructions: Bowel Obstruction (ED), Enteritis (ED) Additional Instructions: You were seen in the emergency department for your centralized abdominal pain worse with eating, you report excessive gas, your CT shows a possible partial small bowel obstruction or an early enteritis. You saw the surgeon Dr. Palmer today. He recommends that you perform a clear fluid diet for the next day or so. You can follow-up with the surgical office visit early next week if desired, if your symptoms are worsening despite clear fluid diet and you experience a lack of passing gas or any stool with increasing nausea and abdominal pain please return to the emergency department at once. Referrals: [facility] [Provider Group] Nabila Barahona, KITTY [Primary Care Provider] - Medical Decision Making This dictation utilizes [id number] dictation software and may contain unedited grammatical errors. 73 y/o M presents to ED today with a chief complaint of generalized abdominal pain, mild chest heaviness after his daily 1-2 mile walks, liquid diarrhea this AM. Onset and characteristics include days onset, worsening abdominal discomfort centrally, excess gas. Patient has relevant history of L inguinal hernia repair, HTN. Family and social history: endorses FHx of heart problems in old-age. Pertinent exam findings / vital signs include benign cardiopulmonary exam, non- peritoneal abdomen, stable vitals, non-toxic. Differential / pathologies of concern include partial SBO, gastroenteritis, angina, viral syndrome, diverticulitis, NOT surgical abdomen, NOT ACS. Diagnostic studies of: -EKG, CBC, CMP, Lipase, Lactate, Trop I, UA, CRP/ESR, Mg++ - imaging decision to follow. -EKG shows sinus rhythm at 83 bpm with a normal axis, good R wave progression, no signs of ischemia, normal QT QTc, slightly prolonged MN interval with fairly sharp Q waves most noted in aVF but not greater than 1 mm wide -CBC no leukocytosis -Lactate WNL, do not suspect ischemic colitis/mesenteric ischemia -CMP benign -Trop I negative with reliable onset, unlikely ACS w/ normal EKG -CRP/ESR WNL -Mg++ WNL -Lipase WNL -CT ABD/Pelvis w Contrast shows air/fluid levels, some dilated loops of bowel, spoke with Radiologist - possible early SBO. Consulted Gen. Surg. Dr. Palmer who will present to ED to see patient, he did have small amount of liquid stool this morning, possible partial obstruction. -recommends fluid diet and follow-up in the office, return to ED for severe worsening ABD pain, not passing flatus, intractable vomiting Interventions of: -none- no acute pain or needed treatments in ED. ED Course: Relatively healthy 73-year-old male presents to the emergency department with centralized abdominal pain small amount of liquid stool this morning and abdominal pain with p.o. intake, I am concerned for partial obstruction which is possibly visualized on the CT though an early enteritis could also be causing this. Did consult with surgery and they recommend the patient return home with soft fluid diet and follow-up in the office, no stool softeners recommended. Findings not consistent with complete SBO, volvulus, incarcerated hernia, gastroenteritis, diverticulitis, UC/Crohn's, or other emergent abdominal pathology. Disposition of Enteritis. Assessment/Plan: Counseled the patient on fluid diet and following up with general surgery office visit with strict return criteria for any worsening abdominal pain especially with failure to pass any stool or sudden discontinuation of any passage of gas. Patient verbalized understanding of the plan and return to ED criteria and engaged in shared decision making. Medical Records Medical records reviewed: Yes I reviewed the patient's medical records. Imaging Data Radiologic Study: Attestation: I personally reviewed and interpreted this imaging study as follows: Imaging: CT Scan My impression: Air fluid levels in small intestine, dilated loops Radiologist's impression: EXAM: CT ABDOMEN PELVIS W CLINICAL HISTORY: abdominal pain, concern SBO/partial SBO. TECHNIQUE: Imaging Protocol: Axial computed tomography images with coronal and sagittal reformatted images were created and reviewed CONTRAST MATERIAL: Intravenous: Omnipaque 350 Contrast volume:100 ml Oral: / no COMPARISON: No exams were available for comparison FINDINGS: ABDOMEN and PELVIS: Lung Bases: Normal where visualized. Liver: Normal density. No measurable mass. Gallbladder and biliary tract: No radiodense calculus or dilation. Pancreas: Normal density. No abnormal calcifications or inflammatory process. No evidence of mass. Spleen: Normal size. Kidneys: Normal size, contour and axis. No radiodense stones. No obstructive uropathy. No suspicious masses seen. Adrenal glands: No masses seen. Vasculature: Abdominal aorta non-dilated. Severe atherosclerotic changes. Soft tissues: Unremarkable. Bladder: No gross wall thickening. No calculi.No focal mass. Bowel: Mildly dilated loops of small bowel in the left mid abdomen without definite focal transition point. Findings could represent early partial small bowel obstruction versus enteritis. Minimal diverticulosis. No evidence of diverticulitis. Colon is mainly free of stool. Appendix normal. Peritoneal cavity: No ascites. No focal collection or mesenteric inflammatory response. Bones: degenerative changes lumbar spine. Reproductive organs: Within normal limits. Lymph nodes: Unremarkable. IMPRESSION:: Mildly dilated jejunum, left mid abdomen which represent early or partial small bowel obstruction versus enteritis. Lab Data Lab results reviewed: Yes I reviewed the patient's lab results. Labs: Laboratory Tests Range/Units 09/28/23 08:07 WBC (4.4-10.8) 10^3/uL 13.60 H RBC (4.36-5.78) 10^6/uL 5.68 Hgb (13.5-17.5) g/dL 16.7 Hct (40.0-50.0) % 49.4 MCV (80-95) fL 87 MCH (27.0-33.0) pg 29.4 MCHC (32.0-36.0) % 33.8 RDW (11.8-14.1) % 13.0 Plt Count (130-400) 10^3/uL 193 MPV (8.0-11.0) fL 10.2 Immature Gran % 0.3 Neutrophils % 90.0 Lymphocytes % 2.5 Monocytes % 6.0 Eosinophils % 0.8 Basophils % 0.4 Nucleated RBC % (0.0-0.3) % 0.0 Absolute Neutrophils (1.2-6.7) 10^3/uL 12.24 H Absolute Lymphocytes (1.2-3.4) 10^3/uL 0.34 L Absolute Monocytes (0.1-0.8) 10^3/uL 0.82 H Absolute Eosinophils (0.0-0.7) 10^3/uL 0.11 Absolute Basophils (0.0-0.2) 10^3/uL 0.05 ESR (0-20) mm/hr 6 VBG Lactate (0.6-1.4) mmol/L 1.7 H Sodium (136-145) mmol/L 137 Potassium (3.5-5.1) mmol/L 4.1 Chloride (98-107) mmol/L 105 Carbon Dioxide (21.0-32.0) mmol/L 25.9 Anion Gap (3-11) mmol/L 6.1 BUN (7-18) mg/dL 18 Creatinine (0.70-1.30) mg/dL 1.0 Est GFR (CKD-EPI 2020) (mL/min/1.73m2) 79.47 Glucose (74-106) mg/dL 139 H Calcium (8.5-10.1) mg/dL 9.1 Magnesium (1.8-2.4) mg/dL 2.0 Total Bilirubin (0.2-1.0) mg/dL 0.9 AST (15-37) U/L 21 ALT (16-63) U/L 42 Alkaline Phosphatase (46-116) U/L 85 Troponin I (<or=60) ng/L < 50 C-Reactive Protein (0.0-0.3) mg/dL 0.10 Total Protein (6.4-8.2) g/dL 7.2 Albumin (3.4-5.0) g/dL 3.4 Lipase (16-77) U/L 30 HPI General Date/Time Provider Initiated Documentation: 09/28/23 07:47 . HPI Narrative: 73 year-old male presents to ED today by POV/ambulating with a chief complaint of abdominal discomfort, excess belching, central abdominal pain, and mild chest heaviness for 2 days. Patient states he had generalized abdominal pain liquid diarrhea this morning, nausea without overt vomiting, takes a daily walk of 1 to 2 miles with some chest heaviness and shortness of breath but questions whether this is due to change in the seasons with turning his heat on in the home. Has a dry cough. Quality described as generalized crampiness, no radiation to black/tarry/bloody stools, hemoptysis, productive cough, fever, visual changes, dizziness, sweating, vomiting, coffee-ground emesis. Severity is described as mild/10. Palliating factors include nothing specific attempted. Provoking factors include nothing specific. Events leading up to the incident/Associated Symptoms: Patient also notes chronic dysphagia in his lower esophagus with dry foods, has never had an endoscopy. Patient denies cardiac history, endorses only abdominal surgery in history as a L inguinal hernia repair. Patient not anticoagulated. Related Data Home Medications Medication Instructions Recorded Confirmed aspirin 81 mg chewable tablet 81 mg PO DAILY 10/09/13 07/31/23 (Aspirin Low-Strength) ascorbic acid (vitamin C) 500 mg 500 mg PO DAILY 03/06/22 09/28/23 capsule cholecalciferol (vitamin D3) 25 25 mcg PO DAILY 03/06/22 09/28/23 mcg (1,000 unit) capsule ubidecarenone-omega 3-vit E 25 1 cap PO DAILY 03/06/22 09/28/23 mg-150 (90-60) mg-200 unit capsule (Co [id number] E-Fish Oil) saw palmetto 160 mg capsule 640 mg PO DAILY 04/18/22 09/28/23 lisinopril 40 mg tablet 40 mg PO DAILY #90 tab-caps 03/19/23 09/28/23 atorvastatin 40 mg tablet 40 mg PO QPM #90 tabs 03/20/23 09/28/23 zinc glycinate 30 mg capsule 30 mg PO DAILY 07/31/23 09/28/23 hydrochlorothiazide 12.5 mg tablet 12.5 mg PO DAILY #90 tab-caps 09/25/23 09/28/23 tamsulosin 0.4 mg capsule 0.4 mg PO DAILY #90 caps 09/25/23 09/28/23 Previous Rx's Medication Instructions Recorded lisinopril 40 mg tablet 40 mg PO DAILY #90 tab-caps 03/19/23 atorvastatin 40 mg tablet 40 mg PO QPM #90 tabs 03/20/23 hydrochlorothiazide 12.5 mg tablet 12.5 mg PO DAILY #90 tab-caps 09/25/23 tamsulosin 0.4 mg capsule 0.4 mg PO DAILY #90 caps 09/25/23 Allergies Allergy/AdvReac Type Severity Reaction Status Date / Time No Known Allergies Allergy Verified 09/28/23 07:59 General Stated Complaint: Chest Pain PANKAJ: 3 Review of Systems All systems reviewed & are unremarkable except as noted in HPI and below PFSH All Active Problems (Updated 09/28/23 @ 10:30 by CECY Escalante) Enteritis (Acute) Abdominal pain (Acute) Tinnitus (Acute) Hydrocele (Acute) BPH (benign prostatic hyperplasia) (Chronic) Hyperlipidemia (Acute) Essential hypertension (Acute 10/08/13) Medical History Atypical chest pain (02/10/18) negative stress test Essential hypertension Surgical History Colonoscopy - MAC (05/31/18) History of cataract surgery Repair of inguinal hernia (~2007) 2021-bil Family History Father , 91 Essential hypertension Sister No problems noted. Social History (Updated 06/21/22 @ 11:44 by Lynne Santoyo) Smoking/Tobacco Use Status: Former Tobacco Use tobacco type: cigarettes Quit Date: 11/19/85 Tobacco: How many years used: 35 Quit status: has quit before Second Hand Exposure: No Smoking risk assessment performed?: Yes Alcohol Intake: current Alcohol Intake frequency: a few times a month Alcohol type: hard liquor Drug use: Never Substance use type: does not use Caregiver/Support person: No Household members: spouse Housing: house Communication Needs: None Do you need help understanding health information?: Never current occupation: SELF EMPLOYED Pets and animals: No Sexually active: Yes Do you think of yourself as: straight/heterosexual Current gender identity: male What is your relationship status?: How often do you talk on the phone with friends or family?: once per week How often do you get together with friends or relatives?: once per week How often do you attend anabaptism or scientology services?: decline to answer Do you belong to any clubs or organized social groups?: no Panel score (0-1 are the most socially isolated patients): 1 What type of physical activity do you participate in: walking Duration: 15-30 minutes/day Frequency: 3-4 times per week So/Hinduism: Oriental Orthodox Special so needs: No Seatbelt use: always Helmet use: Yes Drive intox or ride w/intox party bus driver: No Do you feel safe at home: Yes Do you feel safe in your relationship?: Yes Exam Narrative Exam Narrative: GENERAL APPEARANCE: Well-nourished, non-toxic, awake and alert, atraumatic, no acute distress. SKIN: Warm, pink, dry, intact, without rashes/lesions/ulcerations. HEAD: Normocephalic, atraumatic, normal hair distribution for gender/age. EYES: Pupils PERRLA, EOMs intact without nystagmus, normal conjunctiva, no ex udates on lids/lashes. ENT: Nares patent, no circumoral cyanosis, no facial swelling NECK: Supple, trachea midline, painless cervical ROM. LUNGS/CHEST: Lungs CTA bilaterally- no rhonchi/rales/wheezes diffusely, non- labored respirations, normal A/P diameter, symmetrical expansion, no chest wall deformity HEART (CV/PV): Regular rate and rhythm without murmur, no peripheral edema, no JVD. ABDOMEN: Normoactive bowel sounds all quadrants, soft, non-distended, no guarding, no CVA tenderness bilaterally to percussion, no overt abdominal tenderness, no Rovsing's. MSK: Normal ROM, no swelling/deformity to bilateral UEs or LEs, moving all extremities without weakness, no cyanosis, spine midline without tenderness, normal curvature. NEURO: Mental Status AAOx4 - alert to person, place, time, events No facial droop, no forehead involvement. Motor: No focal weakness - strength 5/5 in bilateral UEs and LEs, proximal and distal, symmetric. Sensory: sensation intact to light touch globally. Gait normal: patient ambulated without ataxia into ED room. PSYCH: euthymic, cooperative, pleasant, appropriate speech Course Vital Signs Vital signs: Vital Signs Temperature 36.2 C L 11/10/23 07:55 Pulse 79 09/28/23 07:55 Respiratory Rate 22 09/28/23 07:55 Blood Pressure 147/79 H 09/28/23 07:55 Pulse Oximetry 93 09/28/23 07:55 Temperature 36.2 C L 09/28/23 07:55 Temperature Source Tympanic 09/28/23 07:55 Pulse 79 09/28/23 07:55 Respiratory Rate 16 09/28/23 07:57 Respiratory Effort Normal 09/28/23 07:57 Respiratory Depth Normal 09/28/23 07:57 Respiratory Pattern Normal 09/28/23 07:57 Blood Pressure 147/79 H 09/28/23 07:55 Blood Pressure Position Sitting 09/28/23 07:55 Pulse Oximetry 93 09/28/23 07:55 Oxygen Delivery Method Room Air 09/28/23 07:55 Oxygen Flow Rate 0 09/28/23 07:55 Pain Level 3 09/28/23 07:57
[2023-09-28 08:19] LABS: Abs Immature Grans 0.04 10^3/uL (0.0-0.06); Absolute Basophil Count 0.05 10^3/uL (0.0-0.2); Absolute Eosinophil Count 0.11 10^3/uL (0.0-0.7); Absolute Lymphocyte Count 0.34 10^3/uL (1.2-3.4); Absolute Monocyte Count 0.82 10^3/uL (0.1-0.8); Absolute Neutrophil Count 12.24 10^3/uL (1.2-6.7); Basophils % 0.4; Eosinophils % 0.8; HCT 49.4 % (40.0-50.0); HGB 16.7 g/dL (13.5-17.5); Immature Grans % 0.3; Lactate 1.7 mmol/L (0.6-1.4); Lymphocytes % 2.5; MCH 29.4 pg (27.0-33.0); MCHC 33.8 % (32.0-36.0); MCV 87 fL (80-95); MPV 10.2 fL (8.0-11.0); Platelet Count 193 10^3/uL (130-400); RBC 5.68 10^6/uL (4.36-5.78); RDW-SD 41.1 fL
[2023-09-28 08:21] LABS: ESR 6 mm/hr (0-20)
[2023-09-28 08:40] LABS: ALT 42 U/L (16-63); AST 21 U/L (15-37); Albumin 3.4 g/dL (3.4-5.0); Alkaline Phosphatase 85 U/L (46-116); Anion Gap 6.1 mmol/L (3-11); BUN 18 mg/dL (7-18); Bilirubin, Total 0.9 mg/dL (0.2-1.0); CO2 25.9 mmol/L (21.0-32.0); Calcium 9.1 mg/dL (8.5-10.1); Chloride 105 mmol/L (98-107); Estimated GFR 79.47 (mL/min/1.73m2); Glucose 139 mg/dL (74-106); Lipase 30 U/L (16-77); Potassium 4.1 mmol/L (3.5-5.1); Sodium 137 mmol/L (136-145); Total Protein 7.2 g/dL (6.4-8.2); Troponin I < 50 ng/L (<or=60)
--- NOTE | 2023-09-28 08:45 | DI.CT_ITS ---
Exam(s) CT ABDOMEN PELVIS W EXAM: CT ABDOMEN PELVIS W CLINICAL HISTORY: abdominal pain, concern SBO/partial SBO. TECHNIQUE: Imaging Protocol: Axial computed tomography images with coronal and sagittal reformatted images were created and reviewed CONTRAST MATERIAL: Intravenous: Omnipaque 350 Contrast volume:100 ml Oral: / no COMPARISON: No exams were available for comparison FINDINGS: ABDOMEN and PELVIS: Lung Bases: Normal where visualized. Liver: Normal density. No measurable mass. Gallbladder and biliary tract: No radiodense calculus or dilation. Pancreas: Normal density. No abnormal calcifications or inflammatory process. No evidence of mass. Spleen: Normal size. Kidneys: Normal size, contour and axis. No radiodense stones. No obstructive uropathy. No suspicious masses seen. Adrenal glands: No masses seen. Vasculature: Abdominal aorta non-dilated. Severe atherosclerotic changes. Soft tissues: Unremarkable. Bladder: No gross wall thickening. No calculi.No focal mass. Bowel: Mildly dilated loops of small bowel in the left mid abdomen without definite focal transition point. Findings could represent early partial small bowel obstruction versus enteritis. Minimal div erticulosis. No evidence of diverticulitis. Colon is mainly free of stool. Appendix normal. Peritoneal cavity: No ascites. No focal collection or mesenteric inflammatory response. Bones: degenerative changes lumbar spine. Reproductive organs: Within normal limits. Lymph nodes: Unremarkable. IMPRESSION:: Mildly dilated jejunum, left mid abdomen which represent early or partial small bowel o bstruction versus enteritis. RADIATION DOSE DELIVERED: Total DLP DATA REPOSITORY: All CT scans at this facility are submitted to the National Radiology Data Registry (NRDR) Dose Index Registry (DIR) with the [employer] (A[employer]). RADIATION OPTIMIZATION: All CT scans at this facility use at least one of these dose optimization te chniques: automated exposure control; mA and/or kV adjustment per patient size (includes targeted exa ms where dose is matched to clinical indication); or iterative reconstruction.
[2023-09-28] MEDS: Omnipaque 350 MG/ML 500 ML BTL-Imaging package 100 ML IJ (09:43)
[2023-09-28] MEDS: Normal Saline - Diluent 50 ML VIAL IJ (09:47)
--- NOTE | 2023-09-28 10:18 | SCONE_ITS ---
Date of service: 09/28/23 Time of Service: 10:18 Assessment and Plan Assessment and plan (1) Abdominal pain: Status: Acute Assessment and plan: I was able to review his CAT scan, and I do see a little prominence of the small intestine. However, there is no significant inflammation around the bowel itself, nor do I see signs of a discrete transition point that would support the diagnosis of a bowel obstruction. Furthermore, he only surgical history is a left inguinal hernia repair, and the dilated small bowel seems well away from that area. With regards to his exam, he does not have any distention at all, and his bowel sounds are normal with soft nontender abdomen. In that regard, although he does have a little leukocytosis, I think the most likely diagnosis here is some enteritis. We talked about treatment strategies, which basically include a simple diet over the next 48 to 72 hours. I recommended things like broths, liquids, Jell-O's, breads and rice. I suggested Gas-X, as well as Pepto-Bismol and Mylanta to help with some of his symptoms. I did explain that if he does have a bowel obstruction, symptoms may get worse over the coming days. If that is the case, and he develops significant nausea or vomiting, I recommend he comes back to the emergency room for another evaluation. Otherwise, I am happy to see him in the office next week routine follow-up. History of Present Illness History of Present Illness Chief Complaint: Abdominal discomfort Narrative: Is very nice to meet to Braden in the ER today. He is 73 years old. He comes in with a chief complaint of abdominal discomfort. He describes it as a little bit of bloating, and may be some pressure in the lower portion of his belly. It was associated with some loose bowel movement this morning. He also had some burping. Otherwise, he has been in his usual state of health. He does have a sick contact at home, with a who had an upper respiratory tract infection. With regards to his recent symptoms, does describe frequent sense of bloating that is been increasing over the past several months. He also has a little bit of a sense of food not really passing through all the way. He says it helps when he drinks more water. He tells me he moves his bowels about twice a day. The first 1 occurs early in the morning, and is typically formed. This typically followed by another bowel movement after breakfast that is more soft and mixed. He denies any melena, hematochezia, or any other abnormal symptoms. He has had 2 colonoscopies in the past as part of screening for routine health maintenance. He tells me both of these were totally normal. With regards to significant family history, he tells me his cousin who is a colostomy for some type of GI infection. He is not certain of the exact diagnosis. His past surgical history significant for left-sided inguinal hernia repair. Review of Systems Constitutional Constitutional: Reports fatigue, Denies fever(s) and Reports poor appetite Eyes Eyes: Reports system reviewed and no additional complaints, except as documented ENT Ears, Nose, Mouth, and Throat: Reports system reviewed and no additional complaints, except as documented Cardiovascular Cardiovascular: Denies chest pain and Denies dyspnea Respiratory Respiratory: Denies chest congestion, Denies cough and Denies dyspnea Gastrointestinal Gastrointestinal: Reports abdominal pain and Reports nausea Musculoskeletal Musculoskeletal: Reports system reviewed and no additional complaints, except as documented Neurologic Neurologic: Reports system reviewed and no additional complaints, except as documented Endocrine Endocrine: Reports fatigue Hematologic/Lymphatic Hematologic/Lymphatic: Denies easy bleeding and Denies easy bruising PFSH All Active Problems (Updated 09/28/23 @ 10:30 by CECY Escalante) Enteritis (Acute) Abdominal pain (Acute) Tinnitus (Acute) Hydrocele (Acute) BPH (benign prostatic hyperplasia) (Chronic) Hyperlipidemia (Acute) Essential hypertension (Acute 10/08/13) Medical History Atypical chest pain (02/10/18) negative stress test Essential hypertension Surgical History Colonoscopy - MAC (05/31/18) History of cataract surgery Repair of inguinal hernia (~2007) 2021-bilat Family History Father , 91 Essential hypertension Sister No problems noted. Social History (Updated 06/21/22 @ 11:44 by Lynne Santoyo) Smoking/Tobacco Use Status: Former Tobacco Use tobacco type: cigarettes Quit Date: 11/19/85 Tobacco: How many years used: 35 Quit status: has quit before Second Hand Exposure: No Smoking risk assessment performed?: Yes Alcohol Intake: current Alcohol Intake frequency: a few times a month Alcohol type: hard liquor Drug use: Never Substance use type: does not use Caregiver/Support person: No Household members: spouse Housing: house Communication Needs: None Do you need help understanding health information?: Never current occupation: SELF EMPLOYED Pets and animals: No Sexually active: Yes Do you think of yourself as: straight/heterosexual Current gender identity: male What is your relationship status?: How often do you talk on the phone with friends or family?: once per week How often do you get together with friends or relatives?: once per week How often do you attend moravian or latter day services?: decline to answer Do you belong to any clubs or organized social groups?: no Panel score (0-1 are the most socially isolated patients): 1 What type of physical activity do you participate in: walking Duration: 15-30 minutes/day Frequency: 3-4 times per week So/Pentecostalism: Roman Catholic Special so needs: No Seatbelt use: always Helmet use: Yes Drive intox or ride w/intox commercial front load driver: No Do you feel safe at home: Yes Do you feel safe in your relationship?: Yes Exam Const General: cooperative, healthy appearing and comfortable Orientation: alert, awake and oriented x3 GI Inspection: normal to inspection Palpation: soft, no guarding and nontender Percussion: normal to percussion Auscultation: normal bowel sounds Results Last Vital Signs Temp 97.2 F L 09/28/23 07:55 Pulse 79 09/28/23 07:55 Resp 16 09/28/23 07:57 BP 147/79 H 09/28/23 07:55 Pulse Ox 93 09/28/23 07:55 Labs 09/28/23 08:07 09/28/23 08:07 Labs: Laboratory Results - last 24 hr 09/28/23 08:07 WBC 13.60 H RBC 5.68 Hgb 16.7 Hct 49.4 MCV 87 MCH 29.4 MCHC 33.8 RDW 13.0 Plt Count 193 MPV 10.2 Immature Gran % 0.3 Neutrophils % 90.0 Lymphocytes % 2.5 Monocytes % 6.0 Eosinophils % 0.8 Basophils % 0.4 Nucleated RBC % 0.0 Absolute Neutrophils 12.24 H Absolute Lymphocytes 0.34 L Absolute Monocytes 0.82 H Absolute Eosinophils 0.11 Absolute Basophils 0.05 ESR 6 VBG Lactate 1.7 H Sodium 137 Potassium 4.1 Chloride 105 Carbon Dioxide 25.9 Anion Gap 6.1 BUN 18 Creatinine 1.0 Est GFR (CKD-EPI 2020) 79.47 Glucose 139 H Calcium 9.1 Magnesium 2.0 Total Bilirubin 0.9 AST 21 ALT 42 Alkaline Phosphatase 85 Troponin I < 50 C-Reactive Protein 0.10 Total Protein 7.2 Albumin 3.4 Lipase [address] scan report/results: report reviewed and image reviewed CT scan - pelvis: report reviewed and image reviewed
[2023-09-28 10:52] LABS: Bilirubin Negative (Negative); Blood Negative (Negative); Clarity Clear (Clear); Glucose Negative (Negative); Ketones Negative (Negative); Leukocyte Esterase Negative (Negative); Nitrite Negative (Negative); Specific Gravity <= 1.005 (1.005-1.025); Urobilinogen 0.2 mg/dL (Up to 0.2); pH 5.5 (5-8)
== END 2023-09-28 10:51 | disposition home or self-care (01) ==
PROVIDERS: Emergency Provider Physician Assistant; PCP Nurse Practitioner Family
DX: R10.9 Unspecified abdominal pain (principal); K52.9 Noninfective gastroenteritis and colitis, unspecified
CPT/HCPCS: 80053; 83690; 85652; 93005; 99283; 99285; 74177; 81003; 83605; 83735; 84484; 85025; 86140; 93010

== ENCOUNTER → 2024-01-01 02:56 | Outpatient (CLI) | payer MEDICARE, BC, SELFPAY ==
--- NOTE | 2024-01-01 06:30 | DI.US_ITS ---
Exam(s) US HERNIA EXAM: US HERNIA CLINICAL HISTORY: concern for hernia,RLQ DISCOMFORT,r10.31. TECHNIQUE: Ultrasound was performed using standard protocol. COMPARISON: No exams were available for comparison FINDINGS: Sonographic assessment utilizing grayscale and color Doppler imaging was performed and targeted to th e area of clinical concern. No sonographic evidence of a right lower quadrant abdominal wall hernia. IMPRESSION: No sonographic evidence of a right lower quadrant abdominal wall hernia. DATA REPOSITORY:
== END ==
PROVIDERS: PCP Nurse Practitioner Family; Visit Provider Nurse Practitioner Family
DX: R10.31 Right lower quadrant pain (principal)
CPT/HCPCS: 76857

== ENCOUNTER → 2024-03-03 13:44 | Outpatient (BNVA) | payer MEDICARE, BC, SELFPAY | PROVIDERS: PCP Nurse Practitioner Family; Visit Provider Nurse Practitioner Gerontology | DX: N43.3 Hydrocele, unspecified (principal) | CPT/HCPCS: 99213 ==

== ENCOUNTER 2024-10-06 10:40 | Emergency (ER) | payer MEDICARE, BC, SELFPAY ==
[2024-10-06 10:55] VITALS: BP 149/80; PULSE 70; RESP 17; TEMP 36.7; O2SAT 95
[2024-10-06] MEDS: Ibuprofen 400 MG TAB PO (11:28)
[2024-10-06] MEDS: Acetaminophen 500 MG TAB 1000 MG PO (11:29)
[2024-10-06] MEDS: Lidocaine 2% Multi-Dose 50 ML VIAL (11:40)
--- NOTE | 2024-10-06 12:08 | ED.GENADUL_ITS ---
Discharge Plan Disposition Patient Disposition: Home Discharge Details Clinical Impression: Laceration of left thumb Primary Care Provider: Nabila Barahona ED Provider: Dominic Koehler Home Meds and New Rx's Prescriptions: Continued cholecalciferol (vitamin D3) 25 mcg (1,000 unit) capsule 25 mcg PO DAILY ascorbic acid (vitamin C) 500 mg capsule 500 mg PO DAILY Co [id number] E-Fish Oil 25-150-200 mg-mg-unit capsule 1 cap PO DAILY zinc glycinate 30 mg capsule 30 mg PO DAILY saw palmetto 160 mg capsule 640 mg PO DAILY Rx Instructions: give with meal/snack aspirin [Aspirin Low-Strength] 81 MG tablet,chewable 81 mg PO DAILY Patient Comments: Pt only takes in the summer time tamsulosin 0.4 mg capsule 0.4 mg PO DAILY Qty: 90 3RF atorvastatin 40 mg tablet 40 mg PO QPM Qty: 90 4RF lisinopril 40 mg tablet 40 mg PO DAILY Qty: 90 4RF hydrochlorothiazide 12.5 mg tablet 12.5 mg PO DAILY Qty: 90 3RF Discharge Instructions Instructions: Laceration Repair With Stitches ED Additional Instructions: You are seen in the emergency department for your thumb laceration which was closed with 5 sutures. As we discussed these need to be removed in the next 7 to 10 days. If you are traveling please go to an emergency department or urgent urgent care center. As we discussed if you develop streaking signs of infection fevers or any foul-smelling drainage please return to the emergency department. HPI General Date/Time Provider Initiated Documentation: 10/06/24 11:15 . HPI Narrative: MDM This is an overall very well-appearing normothermic and not tachycardic [id number]-soml-[id number] 74-year-old male with left thumb laceration which will be closed with sutures following irrigation in the emergency department. Tetanus updated less than 5 years ago. Full range of motion in left thumb so I am not suspicious for any underlying ligamentous injury. No pain out of proportion to suggest necrotizing soft tissue infection. No underlying bony tenderness and relatively superficial wound so we will defer x-rays as my suspicion is low for any acute osseous abnormalities. Please see procedure note concerning suture repair. I advised patient to return to the ED or go to urgent care or another emergency department neck 7 to 10 days to have the sutures removed. We also discussed return to the ED for signs of infection fevers or any foul-smelling drainage. He understood his return indications and was discharged with an em piric trial of expectant outpatient management. HPI This is a [id number]-[id number]-[id number] 74-year-old male not on anticoagulants arriving to the emergency department with his in the setting of left thumb laceration. He reports that he was opening a new pocket knife at approximately 9 AM this morning. He sustained a laceration to his left thumb. His bleeding was fairly brisk and he elected to come to the emergency department. No other injuries. No falls. Was in his usual state of health earlier today. Exam General: Well-appearing in no acute distress speaking in complete sentences. Head: Normocephalic, atraumatic. Eye: Extraocular eye movements intact. No conjunctival injection. No scleral icterus. Ear, nose, mouth, throat: Grossly normal inspection. Normal voice, handling secretions normally. Neck: Trachea midline. Cardiovascular: Well-perfused distal extremities. Respiratory: Nonlabored respiration. Gastrointestinal: Nondistended abdomen. Musculoskeletal: On the palmar aspect of the patient's left thumb there is an approximately 3 cm laceration that violates the subcutaneous tissue. Full range of motion left thumb. No underlying bony tenderness. Skin: Normal for age and race, grossly normal temperature and turgor. No acute rash. Neurologic: Alert and appropriate, no apparent acute deficits. GCS 15. Related Data Home Medications ?Medication ?Instructions ?Recorded ?Confirmed aspirin 81 mg chewable tablet 81 mg PO DAILY 10/09/13 10/06/24 (Aspirin Low-Strength) ascorbic acid (vitamin C) 500 mg 500 mg PO DAILY 03/06/22 10/06/24 capsule cholecalciferol (vitamin D3) 25 25 mcg PO DAILY 03/06/22 10/06/24 mcg (1,000 unit) capsule ubidecarenone-omega 3-vit E 25 1 cap PO DAILY 03/06/22 10/06/24 mg-150 (90-60) mg-200 unit capsule (Co [id number] E-Fish Oil) saw palmetto 160 mg capsule 640 mg PO DAILY 04/18/22 10/06/24 zinc glycinate 30 mg capsule 30 mg PO DAILY 07/31/23 10/06/24 tamsulosin 0.4 mg capsule 0.4 mg PO DAILY #90 caps 09/25/23 10/06/24 atorvastatin 40 mg tablet 40 mg PO QPM #90 tabs 04/14/24 10/06/24 lisinopril 40 mg tablet 40 mg PO DAILY #90 tab-caps 06/10/24 10/06/24 hydrochlorothiazide 12.5 mg tablet 12.5 mg PO DAILY #90 tab-caps 09/08/24 10/06/24 Previous Rx's ?Medication ?Instructions ?Recorded tamsulosin 0.4 mg capsule 0.4 mg PO DAILY #90 caps 09/25/23 atorvastatin 40 mg tablet 40 mg PO QPM #90 tabs 04/14/24 lisinopril 40 mg tablet 40 mg PO DAILY #90 tab-caps 06/10/24 hydrochlorothiazide 12.5 mg tablet 12.5 mg PO DAILY #90 tab-caps 09/08/24 Allergies Allergy/AdvReac Type Severity Reaction Status Date / Time No Known Allergies Allergy Verified 10/06/24 10:58 General Stated Complaint: Laceration PANKAJ: 4 Course Vital Signs Vital signs: Vital Signs Temperature 36.7 C 10/06/24 10:55 Pulse 70 10/06/24 10:55 Respiratory Rate 17 10/06/24 10:55 Blood Pressure 149/80 H 10/06/24 10:55 Pulse Oximetry 95 10/06/24 10:55 Temperature 36.7 C 10/06/24 10:55 Temperature Source Oral 10/06/24 10:55 Pulse 70 10/06/24 10:55 Respiratory Rate 17 10/06/24 10:55 Respiratory Effort Normal 10/06/24 12:00 Blood Pressure 149/80 H 10/06/24 10:55 Blood Pressure Position Sitting 10/06/24 10:55 Pulse Oximetry 95 10/06/24 10:55 Oxygen Delivery Method Room Air 10/06/24 10:55 Oxygen Flow Rate 0 10/06/24 10:55 Pain Level 1 10/06/24 10:55 Procedures Laceration Laceration 1: Site: hand Side (If applicable): left Size (cm): 3 Description: linear Depth: simple, single layer Local anesthetic: Lidocaine 2% (Digital block left thumb and local infiltrate) Amount of anesthesia used (mL): 5 Pre-repair: wound explored, irrigated extensively and deep structures intact Skin layer closed with: nylon Size (cm): 4-0 Number of sutures: 5 Technique: simple, interrupted Medical Decision Making Quality:SDOH Health Related Social Needs: No Data to Display PFSH All Active Problems (Updated 10/06/24 @ 12:15 by Dominic Koehler MD) Laceration of left thumb (Acute) Dysphagia (Acute) Abdominal pain (Acute) Tinnitus (Acute) Hydrocele (Acute) BPH (benign prostatic hyperplasia) (Chronic) Hyperlipidemia (Acute) Essential hypertension (Acute 10/08/13) Medical History Atypical chest pain (02/10/18) negative stress test Essential hypertension Surgical History Colonoscopy - MAC (05/31/18) History of cataract surgery Repair of inguinal hernia (~2007) 2021-bilat Family History Father , 91 Essential hypertension Sister No problems noted. Social History (Updated 06/21/22 @ 11:44 by Lynne Santoyo) Smoking/Tobacco Use Status: Former Tobacco Use tobacco type: cigarettes Quit Date: 11/19/85 Tobacco: How many years used: 35 Quit status: has quit before Second Hand Exposure: No Smoking risk assessment performed?: Yes Alcohol Intake: current Alcohol Intake frequency: a few times a month Alcohol type: hard liquor Drug use: Never Substance use type: does not use Caregiver/Support person: No Household members: spouse Housing: house Communication Needs: None Do you need help understanding health information?: Never current occupation: SELF EMPLOYED Pets and animals: No Sexually active: Yes Do you think of yourself as: straight/heterosexual Current gender identity: male What is your relationship status?: How often do you talk on the phone with friends or family?: once per week How often do you get together with friends or relatives?: once per week How often do you attend religion or cheondoism services?: decline to answer Do you belong to any clubs or organized social groups?: no Panel score (0-1 are the most socially isolated patients): 1 What type of physical activity do you participate in: walking Duration: 15-30 minutes/day Frequency: 3-4 times per week So/Methodist: Judaism Special so needs: No Seatbelt use: always Helmet use: Yes Drive intox or ride w/intox bus driver supervisor: No Do you feel safe at home: Yes Do you feel safe in your relationship?: Yes
[2024-10-06 12:31] VITALS: BP 142/74; PULSE 82; RESP 18; O2SAT 100
== END 2024-10-06 12:31 | disposition home or self-care (01) ==
LOC: ER 12:21
PROVIDERS: Emergency Provider Emergency Medicine; PCP Nurse Practitioner Family
DX: S61.012A Laceration without foreign body of left thumb without damage to nail, initial encounter (principal); W26.0XXA Contact with knife, initial encounter; Z87.891 Personal history of nicotine dependence; I10 Essential (primary) hypertension
CPT/HCPCS: 12002; J2003

== ENCOUNTER → 2024-11-20 14:09 | Outpatient (BNVA) | payer MEDICARE, BC, SELFPAY | PROVIDERS: PCP Nurse Practitioner Family; Visit Provider Nurse Practitioner Gerontology | DX: N43.3 Hydrocele, unspecified (principal) | CPT/HCPCS: 99213 ==

== ENCOUNTER 2025-04-07 08:08 | Outpatient (CLI) | payer MEDICARE, BC, SELFPAY ==
[2025-04-07 07:49] LABS: HCT 49.5 % (40.0-50.0); HGB 16.4 g/dL (13.5-17.5); MCH 29.5 pg (27.0-33.0); MCHC 33.1 % (32.0-36.0); MCV 89 fL (80-95); MPV 10.4 fL (8.0-11.0); Platelet Count 223 10^3/uL (130-400); RBC 5.56 10^6/uL (4.36-5.78); RDW-SD 42.1 fL; WBC 7.25 10^3/uL (4.4-10.8)
[2025-04-07 08:58] LABS: ALT 54 U/L (16-63); AST 28 U/L (15-37); Albumin 3.5 g/dL (3.4-5.0); Alkaline Phosphatase 104 U/L (46-116); Anion Gap 5.7 mmol/L (3-11); BUN 11 mg/dL (7-18); CO2 29.3 mmol/L (21.0-32.0); CREATININE 0.9 mg/dL (0.70-1.30); Calcium 9.3 mg/dL (8.5-10.1); Calculated LDL 60 mg/dL (<100); Chloride 103 mmol/L (98-107); Cholesterol 118 mg/dL (<200); Estimated GFR 89.62 (mL/min/1.73m2); Glucose 113 mg/dL (74-106); HDL Cholesterol 41 mg/dL (>or=40); Potassium 4.4 mmol/L (3.5-5.1); Sodium 138 mmol/L (136-145); Total Protein 7.2 g/dL (6.4-8.2); Triglyceride 86 mg/dL (<150)
[2025-04-07 19:20] LABS: PSA, Screening 9.8 ng/mL (<=6.5)
== END 2025-04-07 08:09 | disposition home or self-care (01) ==
LOC: LBO 08:09
PROVIDERS: PCP Nurse Practitioner Family; Visit Provider Nurse Practitioner Family
DX: I10 Essential (primary) hypertension (principal); E78.2 Mixed hyperlipidemia; N40.0 Benign prostatic hyperplasia without lower urinary tract symptoms; Z12.5 Encounter for screening for malignant neoplasm of prostate
CPT/HCPCS: 36415; 80053; 80061; 84153; 85027

== ENCOUNTER 2025-04-23 08:12 | Emergency (ER) | payer MEDICARE, BC, SELFPAY ==
[2025-04-23] VITALS (19 sets, daily range): BP systolic 131–192; BP diastolic 59–74; PULSE 57–81; RESP 14–20; TEMP 36.5; O2SAT 95–100
--- NOTE | 2025-04-23 08:00 | RT.EKG_ITS ---
APPROVED REPORT Exam: Resting ECG Reason for Exam: Chest Pain Patient Location: E HR:73 bpm ECG Measurements Heart Rate 73 AXIS MT 186 P 39 QRSd 86 QRS 46 QT 368 T 43 QTc 405 Conclusion Sinus rhythm...normal P axis, V-rate 60- 99
--- NOTE | 2025-04-23 08:30 | DI.CT_ITS ---
Exam(s) CT HEAD WO EXAM: CT HEAD WO CLINICAL HISTORY: dizziness x weeks. TECHNIQUE: Imaging Protocol: Axial computed tomography images with coronal and sagittal reformatted images were created and reviewed COMPARISON: No exams were available for comparison FINDINGS: Ventricles and Extra axial spaces: Normal in size and morphology for the patient's age. Hemorrhage: None. Cerebral parenchyma: There are areas of decreased attenuation in the white matter consistent with chr onic microvascular ischemic disease. No acute mass effect. No evidence of an acute territorial infa rct. Midline shift: None. Brainstem/Cerebellum: Normal. Calvarium: Normal. Visualized Paranasal sinuses/Mastoids: There is near complete opacification of the left maxillary sin us. There is wall thickening in the left maxillary sinus which can be seen with chronic sinus diseas e. There is mild mucosal thickening in the remaining visualized paranasal sinuses. The mastoid air cells are clear. Soft Tissues: Unremarkable. IMPRESSION: 1. No acute intracranial process. 2. Paranasal sinusitis. RADIATION DOSE DELIVERED: 893.01mGy.cm Total DLP DATA REPOSITORY: All CT scans at this facility are submitted to the National Radiology Data Registry (NRDR) Dose Index Registry (DIR) with the [employer] ([employer]). RADIATION OPTIMIZATION: All CT scans at this facility use at least one of these dose optimization te chniques: automated exposure control; mA and/or kV adjustment per patient size (includes targeted exa ms where dose is matched to clinical indication); or iterative reconstruction.
--- NOTE | 2025-04-23 08:40 | ED.GENADUL_ITS ---
Discharge Plan Disposition Patient Disposition: Home Condition: Stable Discharge Details Clinical Impression: Dizziness of unknown cause Primary Care Provider: Nabila Barahona ED Provider: Delonte Arias Home Meds and New Rx's Prescriptions: Continued cholecalciferol (vitamin D3) 25 mcg (1,000 unit) capsule 25 mcg PO DAILY ascorbic acid (vitamin C) 500 mg capsule 500 mg PO DAILY Co G-40-Bbunszy E-Fish Oil 25-150-200 mg-mg-unit capsule 1 cap PO DAILY zinc glycinate 30 mg capsule 30 mg PO DAILY saw palmetto 160 mg capsule 640 mg PO DAILY Rx Instructions: give with meal/snack aspirin [Aspirin Low-Strength] 81 MG tablet,chewable 81 mg PO DAILY Patient Comments: Pt only takes in the summer time atorvastatin 40 mg tablet 40 mg PO QPM Qty: 90 4RF lisinopril 40 mg tablet 40 mg PO DAILY Qty: 90 4RF hydrochlorothiazide 12.5 mg tablet 12.5 mg PO DAILY Qty: 90 3RF tamsulosin 0.4 mg capsule 0.4 mg PO DAILY Qty: 90 3RF Discharge Instructions Instructions: Dizziness, Adult ED Additional Instructions: You were seen in the emergency department for 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 Your workup is negative for any damage to the heart, your risk factors put you in the low risk category which is reasonable for outpatient follow-up with the primary care physician referral to cardiology for an updated echocardiogram and stress test. Please return to the emergency department for any increasing chest pain especially shortness of breath, sweating, near fainting or other emergent concerns. Please continue taking the daily baby aspirin, you may want to scale back on your physical activity and stay hydrated. Referrals: [facility] [Provider Group] Nabila Barahona NP [Primary Care Provider] - Discharge Data Discharge Date/Time-TO BE ENTERED AT DEPARTURE: 04/23/25 10:24 HPI General Date/Time Provider Initiated Documentation: 04/23/25 08:26 . 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 Quality described as lingering chest irritation from a cold a couple months ago, arm heaviness, head heaviness, no radiation to overt chest pain, shortness of breath, diaphoresis, near syncope, syncope, abdominal pain, nausea/vomiting, fever, cough. Severity is described as moderate. Palliating factors include nothing specific. Provoking factors include nothing specific. Events leading up to the incident/Associated Symptoms: Patient denies personal history of cardiac problems, endorses FHx in his father, and states he's had a treadmill stress test years ago. Patient not anticoagulated. Related Data Home Medications ?Medication ?Instructions ?Recorded ?Confirmed aspirin 81 mg chewable tablet 81 mg PO DAILY 10/09/13 04/23/25 (Aspirin Low-Strength) ascorbic acid (vitamin C) 500 mg 500 mg PO DAILY 03/06/22 04/23/25 capsule cholecalciferol (vitamin D3) 25 25 mcg PO DAILY 03/06/22 04/23/25 mcg (1,000 unit) capsule ubidecarenone-omega 3-vit E 25 1 cap PO DAILY 03/06/22 04/23/25 mg-150 (90-60) mg-200 unit capsule (Co V-05-[id number] E-Fish Oil) saw palmetto 160 mg capsule 640 mg PO DAILY 04/18/22 04/23/25 zinc glycinate 30 mg capsule 30 mg PO DAILY 07/31/23 04/23/25 atorvastatin 40 mg tablet 40 mg PO QPM #90 tabs 04/14/24 04/23/25 lisinopril 40 mg tablet 40 mg PO DAILY #90 tab-caps 06/10/24 04/23/25 hydrochlorothiazide 12.5 mg tablet 12.5 mg PO DAILY #90 tab-caps 09/08/24 04/23/25 tamsulosin 0.4 mg capsule 0.4 mg PO DAILY #90 caps 10/21/24 04/23/25 Previous Rx's ?Medication ?Instructions ?Recorded atorvastatin 40 mg tablet 40 mg PO QPM #90 tabs 04/14/24 lisinopril 40 mg tablet 40 mg PO DAILY #90 tab-caps 06/10/24 hydrochlorothiazide 12.5 mg tablet 12.5 mg PO DAILY #90 tab-caps 09/08/24 tamsulosin 0.4 mg capsule 0.4 mg PO DAILY #90 caps 10/21/24 Allergies Allergy/AdvReac Type Severity Reaction Status Date / Time No Known Allergies Allergy Verified 04/23/25 08:20 General Stated Complaint: Chest Pain PANKAJ: 3 Review of Systems All systems reviewed & are unremarkable except as noted in HPI and below Exam Narrative Exam Narrative: GENERAL APPEARANCE: Well-nourished, non-toxic, awake and alert, atraumatic, no acute distress. SKIN: Warm, pink, dry, intact, without rashes/lesions/ulcerations. HEAD: Normocephalic, atraumatic, normal hair distribution for gender/age. EYES: Normal conjunctiva, no exudates on lids/lashes. ENT: Nares patent, no circumoral cyanosis, no facial swelling NECK: Supple, trachea midline, painless cervical ROM. LUNGS/CHEST: Lungs CTA bilaterally-no rhonchi/rales/wheezes diffusely, non- labored respirations, normal A/P diameter, symmetrical expansion, no chest wall deformity HEART (CV/PV): Regular rate and rhythm without murmur, no peripheral edema, no JVD. ABDOMEN: Soft, non-distended, no guarding. MSK: Normal ROM, no swelling/deformity to bilateral UEs or LEs, moving all extremities without weakness, no cyanosis, spine midline without tenderness, normal curvature. NEURO: Mental Status AAOx4 - alert to person, place, time, events No facial droop, no forehead involvement, no dysmetria with cerebellar testing, normal FNF Motor: No focal weakness - strength 5/5 in bilateral UEs and LEs, proximal and distal, symmetric. Sensory: sensation intact to light touch globally. Gait normal: patient ambulated without ataxia into ED room. PSYCH: euthymic, cooperative, pleasant, appropriate speech Course Vital Signs Vital signs: Vital Signs Pulse 78 04/23/25 08:18 Respiratory Rate 18 04/23/25 08:18 Blood Pressure 192/72 H 04/23/25 08:18 Pulse Oximetry 98 04/23/25 08:18 Temperature 36.5 C 04/23/25 08:23 Temperature Source Oral 04/23/25 08:23 Pulse 68 04/23/25 08:31 Pulse 66 04/23/25 08:31 Respiratory Rate 20 04/23/25 08:31 Respiratory Effort Normal, Non-Labored 04/23/25 08:25 Respiratory Depth Normal 04/23/25 08:25 Respiratory Pattern Normal 04/23/25 08:25 Blood Pressure 156/74 H 04/23/25 08:31 Blood Pressure Mean 102 04/23/25 08:31 Blood Pressure Position Supine 04/23/25 08:23 Pulse Oximetry 100 04/23/25 08:23 Oxygen Delivery Method Room Air 04/23/25 08:23 Oxygen Flow Rate 0 04/23/25 08:23 Pain Level 2 04/23/25 08:25 Medical Decision Making This dictation utilizes [id number] dictation software and may contain unedited grammatical errors. 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 Qu ality described as lingering chest irritation from a cold a couple months ago, arm heaviness, head heaviness, no radiation to overt chest pain, shortness of breath, diaphoresis, near syncope, syncope, abdominal pain, nausea/vomiting, fever, cough. Severity is described as moderate. Palliating factors include nothing specific. Provoking factors include nothing specific. Events leading up to the incident/Associated Symptoms: Patient denies personal history of cardiac problems, endorses FHx in his father, and states he's had a treadmill stress test years ago. Patients' medical history: Atypical chest pain, hypertension, BPH, hyperlipidemia. Family and social history: Lives at home with his , performs farm work, denies COPD, smoked but quit 34 years ago. Pertinent exam findings / vital signs include benign cardiopulmonary exam, subtle systolic murmur best heard at apex, benign abdomen, neuro intact without cerebellar signs. Differential / pathologies of concern include ACS, pneumonia, costochondritis, anxiety, malignancy, viral syndrome. Diagnostic studies of: -CBC, CMP, lipase, serial troponins, BNP, TSH, magnesium, tick and Lyme panel, CT head without contrast, XR chest, EKG. -CBC shows no acute abnormality - CMP shows no acute abnormality of any significance - Troponins are negative - BNP negative - Lipase within normal limits - TSH within normal limits - CT head shows no acute pathology-patient does not have symptoms of sinusitis -Chest x-ray normal -EKG shows normal sinus rhythm at 73 bpm with normal axis, P waves with a slightly prolonged MI interval, narrow complex QRS, good R wave progression, question submillimeter ST depression in V4 and possible 1 mm elevation which is noted on prior EKG in lead III Interventions of: -None. 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 Counseled the patient to take it easy with physical exertional activities until he is seen by cardiology.. Findings not consistent with ACS, CHF, brain malignancy, pneumonia, electrolyte abnormality, pancreatitis thyroid pathology. Disposition of dizziness of unknown cause. Patient verbalized understanding of the plan and return to ED criteria and engaged in shared decision making. Medical Records Medical records reviewed: Yes I reviewed the patient's medical records. Imaging Data Radiologic Study: Attestation: I personally reviewed and interpreted this imaging study as deangelo black: Imaging: CT Scan Radiologist's impression: EXAM: CT HEAD WO CLINICAL HISTORY: dizziness x weeks. TECHNIQUE: Imaging Protocol: Axial computed tomography images with coronal and sagittal reformatted images were created and reviewed COMPARISON: No exams were available for comparison FINDINGS: Ventricles and Extra axial spaces: Normal in size and morphology for the patient's age. Hemorrhage: None. Cerebral parenchyma: There are areas of decreased attenuation in the white mat ter consistent with chronic microvascular ischemic disease. No acute mass effect. No evidence of an acute territorial infarct. Midline shift: None. Brainstem/Cerebellum: Normal. Calvarium: Normal. Visualized Paranasal sinuses/Mastoids: There is near complete opacification of the left maxillary sinus. There is wall thickening in the left maxillary sinus which can be seen with chronic sinus disease. There is mild mucosal thickening in the remaining visualized paranasal sinuses. The mastoid air cells are clear. Soft Tissues: Unremarkable. IMPRESSION: 1. No acute intracranial process. 2. Paranasal sinusitis. Radiologic Study #2: Attestation: I personally reviewed and interpreted this imaging study as follows: Imaging: X-Ray Radiologist's impression: EXAM: XR CHEST 2V PA LATERAL CLINICAL HISTORY: dizziness TECHNIQUE: 2D digital imaging was performed of the chest. Two images were obtained. PA and lateral views were obtained. COMPARISON: CR XR CHEST 2V PA LATERAL from 10/02/2019 FINDINGS: MEDIASTINUM: Normal. HEART: Normal. PULMONARY VASCULATURE: Normal. LUNGS: Clear. PLEURAL SPACE: No pleural effusion or pneumothorax. BONE:Within normal limits for the patient's age. OTHER FINDINGS:Normal. IMPRESSION: No acute pulmonary findings. Lab Data Lab results reviewed: Yes I reviewed the patient's lab results. Labs: Laboratory Tests Range/Units 04/23/25 04/23/25 08:26 09:09 WBC (4.4-10.8) 10^3/uL 6.58 RBC (4.36-5.78) 10^6/uL 5.18 Hgb (13.5-17.5) g/dL 15.4 Hct (40.0-50.0) % 45.6 MCV (80-95) fL 88 MCH (27.0-33.0) pg 29.7 MCHC (32.0-36.0) % 33.8 RDW (11.8-14.1) % 12.9 Plt Count (130-400) 10^3/uL 191 MPV (8.0-11.0) fL 10.6 Immature Gran % % 0.5 Neutrophils % % 74.4 Lymphocytes % % 16.4 Monocytes % % 6.4 Eosinophils % % 1.7 Basophils % % 0.6 Nucleated RBC % (0.0-0.3) % 0.0 Absolute Neutrophils (1.2-6.7) 10^3/uL 4.90 Absolute Lymphocytes (1.2-3.4) 10^3/uL 1.08 L Absolute Monocytes (0.1-0.8) 10^3/uL 0.42 Absolute Eosinophils (0.0-0.7) 10^3/uL 0.11 Absolute Basophils (0.0-0.2) 10^3/uL 0.04 Sodium (136-145) mmol/L 132 L Potassium (3.5-5.1) mmol/L 3.7 Chloride (98-107) mmol/L 98 Carbon Dioxide (21.0-32.0) mmol/L 31.6 Anion Gap (3-11) mmol/L 2.4 L BUN (7-18) mg/dL 10 Creatinine (0.70-1.30) mg/dL 0.9 Est GFR (CKD-EPI 2020) (mL/min/1.73m2) 89.62 Glucose (74-106) mg/dL 133 H Calcium (8.5-10.1) mg/dL 9.0 Magnesium (1.8-2.4) mg/dL 1.9 Total Bilirubin (0.2-1.0) mg/dL 1.0 AST (15-37) U/L 26 ALT (16-63) U/L 49 Alkaline Phosphatase (46-116) U/L 108 Troponin I (<or=76) ng/L 7 8 NT-Pro-B Natriuret Pep (<300) pg/mL 54 Total Protein (6.4-8.2) g/dL 7.0 Albumin (3.4-5.0) g/dL 3.4 Lipase (<78) U/L 41 TSH (0.36-3.74) uIU/mL 1.86 Quality:SDOH Health Related Social Needs: No Data to Display PFSH All Active Problems (Updated 04/23/25 @ 09:57 by CECY Escalante) Dizziness of unknown cause (Acute) Dysphagia (Acute) Abdominal pain (Acute) Tinnitus (Acute) Hydrocele (Acute) BPH (benign prostatic hyperplasia) (Chronic) Hyperlipidemia (Acute) Essential hypertension (Acute 10/08/13) Medical History Atypical chest pain (02/10/18) negative stress test Essential hypertension Surgical History Colonoscopy - MAC (05/31/18) History of cataract surgery Repair of inguinal hernia (~2007) 2021-bilat Family History Father , 91 Essential hypertension Sister No problems noted. Social History (Updated 06/21/22 @ 11:44 by Lynne De La O Smoking/Tobacco Use Status: Former Tobacco Use tobacco type: cigarettes Quit Date: 11/19/85 Tobacco: How many years used: 35 Quit status: has quit before Second Hand Exposure: No Smoking risk assessment performed?: Yes Alcohol Intake: current Alcohol Intake frequency: a few times a month Alcohol type: hard liquor Drug use: Never Substance use type: does not use Caregiver/Support person: No Household members: spouse Housing: house Communication Needs: None Do you need help understanding health information?: Never current occupation: SELF EMPLOYED Pets and animals: No Sexually active: Yes Do you think of yourself as: straight/heterosexual Current gender identity: male What is your relationship status?: How often do you talk on the phone with friends or family?: once per week How often do you get together with friends or relatives?: once per week How often do you attend mormon or anabaptism services?: decline to answer Do you belong to any clubs or organized social groups?: no Panel score (0-1 are the most socially isolated patients): 1 What type of physical activity do you participate in: walking Duration: 15-30 minutes/day Frequency: 3-4 times per week So/Restorationist: Cheondoism Special so needs: No Seatbelt use: always Helmet use: Yes Drive intox or ride w/intox refrigerated national truck driver: No Do you feel safe at home: Yes Do you feel safe in your relationship?: Yes Additional Social history: at side, very supportive
[2025-04-23 08:46] LABS: Abs Immature Grans 0.03 10^3/uL (0.0-0.06); Absolute Basophil Count 0.04 10^3/uL (0.0-0.2); Absolute Eosinophil Count 0.11 10^3/uL (0.0-0.7); Absolute Lymphocyte Count 1.08 10^3/uL (1.2-3.4); Absolute Monocyte Count 0.42 10^3/uL (0.1-0.8); Basophils % 0.6 %; Eosinophils % 1.7 %; HCT 45.6 % (40.0-50.0); HGB 15.4 g/dL (13.5-17.5); Immature Grans % 0.5 %; Lymphocytes % 16.4 %; MCH 29.7 pg (27.0-33.0); MCHC 33.8 % (32.0-36.0); MCV 88 fL (80-95); MPV 10.6 fL (8.0-11.0); Monocytes % 6.4 %; Neutrophils % 74.4 %; Platelet Count 191 10^3/uL (130-400); RBC 5.18 10^6/uL (4.36-5.78); RDW 12.9 % (11.8-14.1); WBC 6.58 10^3/uL (4.4-10.8)
[2025-04-23 09:10] LABS: ALT 49 U/L (16-63); AST 26 U/L (15-37); Albumin 3.4 g/dL (3.4-5.0); Alkaline Phosphatase 108 U/L (46-116); Anion Gap 2.4 mmol/L (3-11); BUN 10 mg/dL (7-18); CO2 31.6 mmol/L (21.0-32.0); CREATININE 0.9 mg/dL (0.70-1.30); Chloride 98 mmol/L (98-107); Estimated GFR 89.62 (mL/min/1.73m2); Glucose 133 mg/dL (74-106); Lipase 41 U/L (<78); Magnesium 1.9 mg/dL (1.8-2.4); NT-proBNP 54 pg/mL (<300); Potassium 3.7 mmol/L (3.5-5.1); Sodium 132 mmol/L (136-145); TSH (W/Ref FT4) 1.86 uIU/mL (0.36-3.74); Troponin I 7 ng/L (<or=76)
--- NOTE | 2025-04-23 09:30 | DI.RAD_ITS ---
Exam(s) XR CHEST 2V PA LATERAL EXAM: XR CHEST 2V PA LATERAL CLINICAL HISTORY: dizziness TECHNIQUE: 2D digital imaging was performed of the chest. Two images were obtained. PA and lateral views were obtained. COMPARISON: CR XR CHEST 2V PA LATERAL from 10/02/2019 FINDINGS: MEDIASTINUM: Normal. HEART: Normal. PULMONARY VASCULATURE: Normal. LUNGS: Clear. PLEURAL SPACE: No pleural effusion or pneumothorax. BONE:Within normal limits for the patient's age. OTHER FINDINGS:Normal. IMPRESSION: No acute pulmonary findings. DATA REPOSITORY: RADIATION DOSE DELIVERED:
[2025-04-23 09:34] LABS: Troponin I 8 ng/L (<or=76)
[2025-04-24 11:36] LABS: Lyme Ab w Rflx to Lyme Confirm Negative (Negative)
[2025-04-26 23:35] LABS: Anaplasma phagocytophilum Negative (Negative); B. miyamotoi PCR Negative (Negative); Babesia divergens/MO-1 Negative (Negative); Babesia duncani Negative (Negative); Babesia microti Negative (Negative); Ehrlichia chaffeensis Negative (Negative); Ehrlichia ewingii/canis Negative (Negative); Ehrlichia muris eauclairensis Negative (Negative)
== END 2025-04-23 10:24 | disposition home or self-care (01) ==
PROVIDERS: Emergency Provider Physician Assistant; PCP Nurse Practitioner Family
DX: R42 Dizziness and giddiness (principal); I10 Essential (primary) hypertension
CPT/HCPCS: 99283; 99284; 36415; 80053; 83690; 87798; 93005; 70450; 71046; 83735; 83880; 84443; 84484; 85025; 86618; 93010

== ENCOUNTER 2025-05-20 07:38 | Outpatient (CLI) | payer MEDICARE, BC, SELFPAY | END 2025-05-20 07:39 | disposition home or self-care (01) | LOC: LBO 07:38 | PROVIDERS: PCP Nurse Practitioner Family; Visit Provider Nurse Practitioner Family | DX: R97.20 Elevated prostate specific antigen [PSA] (principal); N40.0 Benign prostatic hyperplasia without lower urinary tract symptoms | CPT/HCPCS: 36415; 84154 ==

== ENCOUNTER → 2025-05-27 14:42 | Outpatient (BNVA) | payer MEDICARE, BC, SELFPAY | PROVIDERS: PCP Nurse Practitioner Family; Referring Provider Nurse Practitioner Family; Visit Provider Nurse Practitioner Gerontology | DX: N43.3 Hydrocele, unspecified (principal); R97.20 Elevated prostate specific antigen [PSA] | CPT/HCPCS: 99214 ==

== ENCOUNTER → 2025-07-01 07:49 | Outpatient (BNVA) | payer MEDICARE, BC, SELFPAY | PROVIDERS: PCP Nurse Practitioner Family; Referring Provider Nurse Practitioner Family; Visit Provider Nurse Practitioner Gerontology | DX: R97.20 Elevated prostate specific antigen [PSA] (principal) | CPT/HCPCS: 99214 ==

== ENCOUNTER → 2025-07-24 11:39 | Outpatient (BNVA) | payer MEDICARE, BC, SELFPAY | PROVIDERS: PCP Nurse Practitioner Family; Referring Provider Nurse Practitioner Family; Visit Provider Urology | DX: C61 Malignant neoplasm of prostate (principal) | CPT/HCPCS: 55700; 76872 ==

== ENCOUNTER 2025-07-24 12:21 | Outpatient (REF) | payer MEDICARE, BC, SELFPAY ==
--- NOTE | 2025-07-24 12:20 | PROST_PTH ---
PATIENT: Eh Herrera JR LOC: [facility] U#:[id number] AGE/SX: 75/M ROOM: RE07/24/[address]: Delvis Mckeon MD : 1950 BED: DIS: 07/24/2025 SPEC #: [id number] RECD: 07/24/25 13:34 STATUS: VIN RE #: [id number] PJ: 07/24/25 12:[address]: Sujey Mckeon DEPT: Surgical Specimen RECD BY: Yeny Jorge ENTERED: 07/24/25 13:38 SP TYPE: PROST OTHR DR: Nabila Barahona, KITTY Tissues: 1 - PROSTATE NEEDLE BIOPSY 2 - PROSTATE NEEDLE BIOPSY 3 - PROSTATE NEEDLE BIOPSY 4 - PROSTATE NEEDLE BIOPSY 5 - PROSTATE NEEDLE BIOPSY 6 - PROSTATE NEEDLE BIOPSY 7 - PROSTATE NEEDLE BIOPSY 8 - PROSTATE NEEDLE BIOPSY 9 - PROSTATE NEEDLE BIOPSY 10 - PROSTATE NEEDLE BIOPSY 11 - PROSTATE NEEDLE BIOPSY 12 - PROSTATE NEEDLE BIOPSY Procedures: GROSS AND MICRO LEVEL 4 Comments: [id number]
== END 2025-07-24 12:22 | disposition home or self-care (01) ==
LOC: LBN 12:21
PROVIDERS: PCP Nurse Practitioner Family; Visit Provider Urology
DX: C61 Malignant neoplasm of prostate (principal); R97.20 Elevated prostate specific antigen [PSA]
CPT/HCPCS: 88305

== ENCOUNTER → 2025-08-04 13:49 | Outpatient (BNVA) | payer MEDICARE, BC, SELFPAY | PROVIDERS: PCP Nurse Practitioner Family; Referring Provider Nurse Practitioner Family; Visit Provider Urology | DX: C61 Malignant neoplasm of prostate (principal) | CPT/HCPCS: 99215 ==

== ENCOUNTER 2025-09-03 10:53 | Outpatient (CLI) | payer MEDICARE, BC, SELFPAY ==
[2025-09-03 11:09] LABS: HCT 46.3 % (40.0-50.0); HGB 15.5 g/dL (13.5-17.5); MCH 29.6 pg (27.0-33.0); MCHC 33.5 % (32.0-36.0); MCV 88 fL (80-95); MPV 10.3 fL (8.0-11.0); Platelet Count 221 10^3/uL (130-400); RBC 5.24 10^6/uL (4.36-5.78); RDW 12.5 % (11.8-14.1); RDW-SD 40.5 fL; WBC 8.27 10^3/uL (4.4-10.8)
[2025-09-03 11:24] LABS: ALT 43 U/L (16-63); AST 22 U/L (15-37); Albumin 3.5 g/dL (3.4-5.0); Alkaline Phosphatase 98 U/L (46-116); Anion Gap 6.4 mmol/L (3-11); BUN 10 mg/dL (7-18); Bilirubin, Total 0.7 mg/dL (0.2-1.0); CO2 30.6 mmol/L (21.0-32.0); Calcium 8.9 mg/dL (8.5-10.1); Chloride 102 mmol/L (98-107); Estimated GFR 89.07 (mL/min/1.73m2); Glucose 93 mg/dL (74-106); Potassium 4.1 mmol/L (3.5-5.1); Sodium 139 mmol/L (136-145); Total Protein 7.1 g/dL (6.4-8.2)
== END 2025-09-03 10:54 | disposition home or self-care (01) ==
LOC: LBO 10:53
PROVIDERS: PCP Nurse Practitioner Family; Visit Provider Radiology Radiation Oncology
DX: C61 Malignant neoplasm of prostate (principal)
CPT/HCPCS: 36415; 80053; 84153; 84403; 85027

== ENCOUNTER → 2025-09-08 10:46 | Outpatient (BNVA) | payer MEDICARE, BC, SELFPAY | PROVIDERS: PCP Nurse Practitioner Family; Referring Provider Nurse Practitioner Family; Visit Provider Urology | DX: C61 Malignant neoplasm of prostate (principal) | CPT/HCPCS: 99215 ==